=== PATIENT | female | born 1990 | race Caucasian/White ===

== ENCOUNTER 2016-11-12 09:37 | Emergency (ER) | payer OTHER ==
--- NOTE | 2016-11-12 09:47 | EDM.PDOC ---
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 It has not worsened but has continued. Patient denies any fevers, chills or pain with urination. Her bleeding is mild to moderate, she denies passing any clots or tissue. Review of systems: As per history of present illness and below otherwise all systems reviewed and negative. Past medical history: As per history of present illness and as reviewed below otherwise noncontributory. Surgical history: As per history of present illness and as reviewed below otherwise noncontributory. Social history: No reported history of drug or alcohol abuse. Family history: As per history of present illness and as reviewed below otherwise noncontributory. Physical exam: General: Well developed, well nourished in NAD HEENT: Atraumatic, normocephalic, pupils reactive, negative for conjunctival pallor or scleral icterus, mucous membranes moist, throat clear, neck supple, nontender, trachea midline. Lungs: Clear to auscultation, breath sounds equal bilaterally, chest nontender. Heart: S1S2, regular, negative for clicks, rubs, or JVD. Abdomen: Soft, nondistended, nontender. Negative for masses or hepatosplenomegaly. Negative for costovertebral tenderness. Pelvis: Stable nontender. Genitourinary: Deferred. Rectal: Deferred. Extremities: Atraumatic, negative for cords or calf pain. Neurovascular unremarkable. Neuro: Awake, alert, oriented. Cranial nerves II through XII unremarkable. Cerebellum unremarkable. Motor and sensory unremarkable throughout. Exam nonfocal. Diagnostics: [] Labs, urine and ultrasound done ultrasound shows just occasional sac 4 weeks and 6 days labs are normal urine appears contaminated. Therapeutics: [] Impression: [] Threatened Plan: [] Followup women's health clinic Definitive disposition and diagnosis as appropriate pending reevaluation and review of above. - Related Data Allergies/ADRs: Allergies Allergy/AdvReac Type Severity Reaction Status Date / Time No Known Allergies Allergy Verified 10/26/16 19:45 Home Meds: Home Meds . 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 Musculoskeletal History: Reports: Fracture, Other (see below) Other Musculoskeletal History: hx surgery for fx rt arm Neurological History: Reports: None Psychiatric History: Reports: None Endocrine/Metabolic History: Reports: None Hematologic History: Reports: None Immunologic History: Reports: None Oncologic (Cancer) History: Reports: None Dermatologic History: Reports: None - Infectious Disease History Infectious Disease History: Reports: Chicken pox - Past Surgical History Head Surgeries/Procedures: Reports: None Female Surgical History: Reports: None Social & Family History - Tobacco Use Smoking Status *Q: Never Smoker - Caffeine Use Caffeine Use: Reports: None - Alcohol Use Days Per Week of Alcohol Use: 0 - Recreational Drug Use Recreational Drug Use: No ED ROS GENERAL - Review of Systems Review Of Systems: See Below (See history of present illness) ED EXAM - Physical Exam Exam: See Below (See history of present illness) Course - Vital Signs Last Recorded V/S: Last Vital Signs Temp 37.4 C 11/12/16 11:06 Pulse 82 11/12/16 11:06 Resp 17 11/12/16 11:06 BP 105/62 11/12/16 11:06 Pulse Ox 100 11/12/16 11:06 - Orders/Labs/Meds Orders: Active Orders 24 hr Category Date Time Status Sodium Chloride 0.9% [Normal Saline] 1,000 ml Med 11/12/16 10:00 Active IV .BOLUS Sodium Chloride 0.9% [Saline Flush] Med 11/12/16 09:48 Active 10 ml FLUSH ASDIRECTED PRN Sodium Chloride 0.9% [Saline Flush] Med 11/12/16 09:48 Active 2.5 ml FLUSH ASDIRECTED PRN Peripheral IV Insertion Adult [OM.PC] Stat Oth 11/12/16 09:47 Ordered Medication Orders Sodium Chloride (Normal Saline) 1,000 mls @ 999 mls/hr IV .BOLUS LILIAN Last Admin: 11/12/16 10:06 Dose: 999 mls/hr Sodium Chloride (Saline Flush) 10 ml FLUSH ASDIRECTED PRN PRN Reason: Keep Vein Open Last Admin: 11/12/16 10:06 Dose: 10 ml Sodium Chloride (Saline Flush) 2.5 ml FLUSH ASDIRECTED PRN PRN Reason: Keep Vein Open Last Admin: 11/12/16 10:07 Dose: 2.5 ml Labs: Laboratory Tests 11/12/16 11/12/16 11/12/16 Range/Units 10:01 10:01 10:01 WBC 5.34 (4.0-11.0) K/uL RBC 4.42 (4.30-5.90) M/uL Hgb 13.1 (12.0-16.0) g/dL Hct 39.3 (36.0-46.0) % MCV 88.9 (80.0-98.0) fL MCH 29.6 (27.0-32.0) pg MCHC 33.3 (31.0-37.0) g/dL RDW Std Deviation 41.8 (28.0-62.0) fl RDW Coeff of Amanda 13 (11.0-15.0) % Plt Count 359 (150-400) K/uL MPV 8.90 (7.40-12.00) fL Neut % (Auto) 61.1 (48.0-80.0) % Lymph % (Auto) 27.3 (16.0-40.0) % [place] % (Auto) 9.4 (0.0-15.0) % Eos % (Auto) 1.3 (0.0-7.0) % Baso % (Auto) 0.9 (0.0-1.5) % Neut # 3.3 (1.4-5.7) K/uL Lymph # 1.5 (0.6-2.4) K/uL [place] # 0.5 (0.0-0.8) K/uL Eos # 0.1 (0.0-0.7) K/uL Baso # 0.1 (0.0-0.1) K/uL Nucleated RBC % 0.0 /100WBC Nucleated RBCs # 0 K/uL HCG, Quant 4611.1 mIU/mL Urine Color Urine Appearance Urine pH (5.0-8.0) Ur Specific Marion (1.001-1.035) Urine Protein (NEGATIVE) mg/dL Urine Glucose (UA) (NEGATIVE) mg/dL Urine Ketones (NEGATIVE) mg/dL Urine Occult Blood (NEGATIVE) Urine Nitrite (NEGATIVE) Urine Bilirubin (NEGATIVE) Urine Urobilinogen (<2.0) EU/dL Ur Leukocyte Esterase (NEGATIVE) Urine RBC (0-2/HPF) Urine WBC (0-5/HPF) Ur Epithelial Cells (NONE-FEW) Urine Bacteria (NEGATIVE) Blood Type O POSITIVE Antibody Screen NEGATIVE 11/12/16 Range/Units 10:05 WBC (4.0-11.0) K/uL RBC (4.30-5.90) M/uL Hgb (12.0-16.0) g/dL Hct (36.0-46.0) % MCV (80.0-98.0) fL MCH (27.0-32.0) pg MCHC (31.0-37.0) g/dL RDW Std Deviation (28.0-62.0) fl RDW Coeff of Amanda (11.0-15.0) % Plt Count (150-400) K/uL MPV (7.40-12.00) fL Neut % (Auto) (48.0-80.0) % Lymph % (Auto) (16.0-40.0) % [place] % (Auto) (0.0-15.0) % Eos % (Auto) (0.0-7.0) % Baso % (Auto) (0.0-1.5) % Neut # (1.4-5.7) K/uL Lymph # (0.6-2.4) K/uL [place] # (0.0-0.8) K/uL Eos # (0.0-0.7) K/uL Baso # (0.0-0.1) K/uL Nucleated RBC % /100WBC Nucleated RBCs # K/uL HCG, Quant mIU/mL Urine Color YELLOW Urine Appearance HAZY Urine pH 5.5 (5.0-8.0) Ur Specific [place] >= 1.030 (1.001-1.035) Urine Protein NEGATIVE (NEGATIVE) mg/dL Urine Glucose (UA) NEGATIVE (NEGATIVE) mg/dL Urine Ketones NEGATIVE (NEGATIVE) mg/dL Urine Occult Blood MODERATE (NEGATIVE) Urine Nitrite NEGATIVE (NEGATIVE) Urine Bilirubin NEGATIVE (NEGATIVE) Urine Urobilinogen 0.2 (<2.0) EU/dL Ur Leukocyte Esterase SMALL (NEGATIVE) Urine RBC 2-4 (0-2/HPF) Urine WBC 4-6 (0-5/HPF) Ur Epithelial Cells MODERATE (NONE-FEW) Urine Bacteria FEW (NEGATIVE) Blood Type Antibody Screen Meds: Medications Generic Name Dose Route Start Last Admin Trade Name Freq PRN Reason Stop Dose Admin Sodium Chloride 1,000 mls @ 999 mls/hr 11/12/16 10:00 11/12/16 10:06 Normal Saline IV 999 mls/hr .BOLUS LILIAN Administration Sodium Chloride 10 ml 11/12/16 09:48 11/12/16 10:06 Saline Flush FLUSH 10 ml ASDIRECTED PRN Administration Keep Vein Open Sodium Chloride 2.5 ml 11/12/16 09:48 11/12/16 10:07 Saline Flush FLUSH 2.5 ml ASDIRECTED PRN Administration Keep Vein Open Departure - Departure Time of Disposition: 12:45 Disposition: Home, Self-Care 01 Condition: good Clinical Impression: Threatened Forms: ED Department Discharge Additional Instructions: The following information is given to patients seen in the emergency department who are being discharged to home. This information is to outline your options for follow-up care. We provide all patients seen in our emergency department with a follow-up referral. The need for follow-up, as well as the timing and circumstances, are variable depending upon the specifics of your emergency department visit. If you don't have a primary care physician on staff, we will provide you with a referral. We always advise you to contact your personal physician following an emergency department visit to inform them of the circumstance of the visit and for follow-up with them and/or the need for any referrals to a consulting specialist. The emergency department will also refer you to a specialist when appropriate. This referral assures that you have the opportunity for follow-up care with a specialist. All of these measure are taken in an effort to provide you with optimal care, which includes your follow-up. Under all circumstances we always encourage you to contact your private physician who remains a resource for coordinating your care. When calling for follow-up care, please make the office aware that this follow-up is from your recent emergency room visit. If for any reason you are refused follow-up, please contact the [facility] Emergency Department at and asked to speak to the emergency department charge nurse. [facility] Primary Care - Women's Health [address] [place] [id number] - My Orders Last 24 Hours: My Active Orders 11/12/16 09:47 Peripheral IV Insertion Adult [OM.PC] Stat 11/12/16 09:48 Sodium Chloride 0.9% [Saline Flush] 10 ml FLUSH ASDIRECTED PRN Sodium Chloride 0.9% [Saline Flush] 2.5 ml FLUSH ASDIRECTED PRN 11/12/16 10:00 Sodium Chloride 0.9% [Normal Saline] 1,000 ml IV .BOLUS - Assessment/Plan Last 24 Hours: My Active Orders 11/12/16 09:47 Peripheral IV Insertion Adult [OM.PC] Stat 11/12/16 09:48 Sodium Chloride 0.9% [Saline Flush] 10 ml FLUSH ASDIRECTED PRN Sodium Chloride 0.9% [Saline Flush] 2.5 ml FLUSH ASDIRECTED PRN 11/12/16 10:00 Sodium Chloride 0.9% [Normal Saline] 1,000 ml IV .BOLUS
[2016-11-12] MEDS ORDERED: Sodium Chloride 0.9% 2.5 ML Syringe FLUSH PRN (09:48)
[2016-11-12] MEDS ORDERED: Sodium Chloride 0.9% 10 ML Syringe FLUSH PRN (09:48)
[2016-11-12] MEDS ORDERED: Sodium Chloride 0.9% 1,000 ML IV SCH (10:00)
--- NOTE | 2016-11-12 12:33 | US ---
EXAMINATION: Transvaginal obstetric ultrasound HISTORY: Bleeding COMPARISON: None TECHNIQUE: Grayscale, color Doppler, and spectral Doppler images obtained transvaginally. FINDINGS: The uterus is normal in size, contour, and echogenicity. There is a tiny 0.4 cm cyst withi n the endometrial stripe likely a very early gestational sac. No pole or yolk sac is yet ident ified. The gestational age by mean sac diameter is 4 weeks and 6 days with an estimated date of deli very at 07/16/2017. Both ovaries appear normal in size, contour and echogenicity demonstrating normal color and spectral Doppler flow. There is a trace likely physiologic free fluid. IMPRESSION: 1. Likely very early intrauterine gestational sac measuring 4 weeks and 6 days.
[2016-11-12 13:01] VITALS: BP 115/60
== END 2016-11-12 12:53 | disposition home or self-care (01) ==
LOC: MW.ED 09:37
DX: O20.0 Threatened abortion (principal); Z3A.01 Less than 8 weeks gestation of pregnancy; Z87.442 Personal history of urinary calculi
CPT/HCPCS: 36415; 76817; 81001; 84702; 85025; 86850; 86900; 86901; 96360; 99284; J7040; 99283

== ENCOUNTER → 2016-11-14 | Outpatient (CLI) | payer OTHER | LOC: MW.CHOBGYN 13:23 | PROVIDERS: ATTEND Obstetrics & Gynecology | DX: O20.0 Threatened abortion (principal) | CPT/HCPCS: 36415; 84702 ==

== ENCOUNTER → 2016-11-19 | Outpatient (CLI) | payer OTHER | LOC: MW.CHOBGYN 15:44 | PROVIDERS: ATTEND Advanced Practice Midwife | DX: O20.0 Threatened abortion (principal) | CPT/HCPCS: 36415; 84702 ==

== ENCOUNTER 2016-11-21 03:42 | Emergency (ER) | payer OTHER ==
--- NOTE | 2016-11-21 03:48 | EDM.PDOC ---
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 She presents tonight because she passed a piece of tissue which she brings to the ED and is worried that she has had a miscarriage. She is not bleeding heavily and is again only spotting and has minimal pelvic cramping. She's had no fever chills nausea vomiting or diarrhea and no urinary complaints. When she was seen in our ED on November 12 she had a pelvic ultrasound which identified a very early intrauterine gestational sac measuring 4 weeks and 6 days without pole or yolk sac.. She has since followed up in the clinic. Patient denies any sexual intercourse since being seen in the ER. Patient has only used a light pad both before and after passing this tissue. Since her ER visit the patient has been seen in the clinic and has had 2 quantitative hCGs performed since her ER visit showing an upward trend. Her hCG on her ER visit November 09 was 4611, on November 14 it was 5717, on November 19 it was 7615. Please also note when she was in the ER November 12 she had a hemoglobin of 13.1 and a blood type of O+ Review of systems: As per history of present illness and below otherwise all systems reviewed and negative. Past medical history: As per history of present illness and as reviewed below otherwise noncontributory. Surgical history: As per history of present illness and as reviewed below otherwise noncontributory. Social history: No reported history of drug or alcohol abuse. Family history: As per history of present illness and as reviewed below otherwise noncontributory. Physical exam: General: Well-developed well-nourished female who is nontoxic and has stable vitals. Patient brings a zip lock bag with a small old piece of tissue that looks sac like in nature without gross blood or clots HEENT: Atraumatic, normocephalic, negative for conjunctival pallor or scleral icterus, mucous membranes moist, throat clear, neck supple, nontender, trachea midline. Lungs: Clear to auscultation, breath sounds equal bilaterally, chest nontender. Heart: S1S2, regular rate and rhythm no overt murmurs Abdomen: Soft, nondistended, nontender. No overt tenderness on deep palpation and no rebound or guarding Negative for masses or hepatosplenomegaly. NABS Pelvis: Stable nontender. Genitourinary: External genitalia within normal limits and there is a small amount of blood seen in the vault. At the os which is fingertip there is a small amount of tissue which was gently teased out and a small oval shaped piece of tissue was obtained. After this there was no bleeding or tissue seen at the os and once this tissue was removed it was closed. Uterus is small bulky , approximately 6 weeks size and no adnexal tenderness or masses appreciated Rectal: Deferred. Extremities: Atraumatic, negative for cords or calf pain. Neurovascular unremarkable. Neuro: Awake, alert, oriented. Cranial nerves II through XII unremarkable. Cerebellum unremarkable. Motor and sensory unremarkable throughout. Exam nonfocal. Diagnostics: Serum quantitative hCG , pelvic ultrasound The tissue that the patient passed at home was sent to pathology as well as the tissue that was retrieved from her os Therapeutics: cytotec 800 mcg per vagina Quant hCG today 5331 which is a drop from the last one done a day and a half ago 0612: Case was discussed with ; she is covering for Dr. Norris and Lyn Beal the nurse automation lead. She would like the patient to receive Cytotec 800 mcg per vagina and have follow up with Lyn tomorrow in the clinic. Advise patient of this care plan as she is an inevitable AB and she is comfortable with this I cautioned her on reasons to return to the ED and the need to call the clinic this morning for an appointment to be seen tomorrow. said that she would contact Lyn and inform her of this patient as well. Impression: Incomplete AB stable Definitive disposition and diagnosis as appropriate pending reevaluation and review of above. 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 Other OB/BYN History: vaginal bleeding and abdominal pain/ 1 Musculoskeletal History: Reports: Fracture, Other (see below) Other Musculoskeletal History: hx surgery for fx rt arm Neurological History: Reports: None Psychiatric History: Reports: None Endocrine/Metabolic History: Reports: None Hematologic History: Reports: None Immunologic History: Reports: None Oncologic (Cancer) History: Reports: None Dermatologic History: Reports: None - Infectious Disease History Infectious Disease History: Reports: Chicken pox - Past Surgical History Head Surgeries/Procedures: Reports: None Female Surgical History: Reports: None Social & Family History - Family History Family Medical History: Noncontributory - Tobacco Use Smoking Status *Q: Never Smoker Second Hand Smoke Exposure: No - Caffeine Use Caffeine Use: Reports: None - Alcohol Use Days Per Week of Alcohol Use: 0 - Recreational Drug Use Recreational Drug Use: No ED ROS GENERAL - Review of Systems Review Of Systems: ROS reveals no pertinent complaints other than HPI. ED EXAM, GENERAL - Physical Exam Exam: See Below (see dictation) Course - Vital Signs Last Recorded V/S: Last Vital Signs Temp 36.7 C 11/21/16 03:48 Pulse 103 H 11/21/16 03:48 Resp 16 11/21/16 03:48 BP 100/73 11/21/16 03:48 Pulse Ox 99 11/21/16 03:48 - Orders/Labs/Meds Orders: Active Orders 24 hr Category Date Time Status Communication Order [RC] STAT Care 11/21/16 03:55 Active OB 1st Tri Sgl 1st Gest [US] Stat Exams 11/21/16 04:06 Stop Req OB Transvaginal [US] Stat Exams 11/21/16 04:07 Taken Misoprostol [Cytotec] Med 11/21/16 06:15 Once 800 mcg VAG ONETIME ONE Labs: Laboratory Tests 11/21/16 Range/Units 04:00 HCG, Quant 5331.0 mIU/mL Departure - Departure Time of Disposition: 06:22 Disposition: Home, Self-Care 01 Condition: good Clinical Impression: Incomplete Forms: ED Department Discharge Additional Instructions: The following information is given to patients seen in the emergency department who are being discharged to home. This information is to outline your options for follow-up care. We provide all patients seen in our emergency department with a follow-up referral. The need for follow-up, as well as the timing and circumstances, are variable depending upon the specifics of your emergency department visit. If you don't have a primary care physician on staff, we will provide you with a referral. We always advise you to contact your personal physician following an emergency department visit to inform them of the circumstance of the visit and for follow-up with them and/or the need for any referrals to a consulting specialist. The emergency department will also refer you to a specialist when appropriate. This referral assures that you have the opportunity for followup care with a specialist. All of these measure are taken in an effort to provide you with optimal care, which includes your followup. Under all circumstances we always encourage you to contact your private physician who remains a resource for coordinating your care. When calling for followup care, please make the office aware that this follow-up is from your recent emergency room visit. If for any reason you are refused follow-up, please contact the [facility] emergency department at and ask to speak to the emergency department charge nurse. [facility] Primary care-Women's Health [address] [id number] Please call the clinic later today to be seen by Lyn tomorrow in the clinic. Strict pelvic rest as we discussed, rest and push hydration. Use any [id number] meds he would like for cramping and return to ER as needed and as discussed. He would pass blood and some tissue at the day progresses after receiving the medication he got this morning. - My Orders Last 24 Hours: My Active Orders 11/21/16 03:55 Communication Order [RC] STAT 11/21/16 04:06 OB 1st Tri Sgl 1st Gest [US] Stat 11/21/16 04:07 OB Transvaginal [US] Stat 11/21/16 06:15 Misoprostol [Cytotec] 800 mcg VAG ONETIME ONE - Assessment/Plan Last 24 Hours: My Active Orders 11/21/16 03:55 Communication Order [RC] STAT 11/21/16 04:06 OB 1st Tri Sgl 1st Gest [US] Stat 11/21/16 04:07 OB Transvaginal [US] Stat 11/21/16 06:15 Misoprostol [Cytotec] 800 mcg VAG ONETIME ONE
[2016-11-21] MEDS: Misoprostol 200 MCG Tab ONE (06:29)
[2016-11-21] MEDS: Misoprostol 50 MCG (1/2 of 100 MCG) Tab VAG ONE (06:30)
[2016-11-21 06:44] VITALS: BP 105/55
--- NOTE | 2016-11-21 18:59 | US ---
EXAM DATE: 11/21/16 PATIENT'S AGE: 26 Patient: VINCENT LONG Facility: [place], [place] Site . Site : 1990 Study: US OB Pelvis [id number] 5:36:28 AM Ordering Physician: Jaja Peña Final Report: INDICATION: Bleeding. Retained products. TECHNIQUE: Ultrasound OB pelvis transabdominal and transvaginal. Real-time pollock-scale imaging of the pelvis was performed. COMPARISON: 11/12/2016 FINDINGS: There is an ovoid saclike structure within the endocervical canal, measuring up to 1.3 centimeters, without a pole or yolk sac seen. The previously seen saclike structure within the uterine endometrium is not identified. The endometrium is heterogeneous. The right ovary measures 2.4 x 1.8 x 2.1 centimeters the and the left ovary measures 2.4 x 1.5 x 1.8 centimeters. Doppler flow is documented in both ovaries. No significant free fluid is seen. IMPRESSION: A sac-like structure within the endocervical canal, without a pole or yolk sac, with nonvisualization of the previously seen uterine endometrial saclike structure, suggestive of a spontaneous in progress. Recommend correlation with beta HCG levels and a short-term followup study, as clinically indicated. Dictated by Tal Priest MD @ 11/21/2016 6:05:30 AM Dictated by: Tal Priest MD @ 11/21/2016 06:05:39 ----- ADDENDUM ----- These findings were communicated to Dr. Wilkinson on 11/21/2016 at 6:10 a.m. Dictated by Tal Priest MD @ Nov 21 2016 6:09AM (Electronic Signature) Report Signed by Proxy and Original Signed Document filed in the Medical Record. [facility]
== END 2016-11-21 06:42 | disposition home or self-care (01) ==
LOC: MW.ED 03:42
DX: O03.4 Incomplete spontaneous abortion without complication (principal); Z3A.01 Less than 8 weeks gestation of pregnancy
CPT/HCPCS: 36415; 76817; 84702; 99284; A9270; 88305; 99283

== ENCOUNTER → 2016-12-02 | Outpatient (CLI) | payer OTHER | END | disposition home or self-care (01) | LOC: MW.CHFP 13:31 | PROVIDERS: ATTEND Nurse Practitioner Family | DX: R53.83 Other fatigue (principal) | CPT/HCPCS: 36415; 84443; 85027 ==

== ENCOUNTER 2017-10-24 07:07 | Inpatient (IN) | payer BC ==
[2017-10-24] MEDS ORDERED: Sodium Chloride 0.9% 2.5 ML Syringe FLUSH PRN (10:48)
[2017-10-24] MEDS ORDERED: Nalbuphine 10 MG/1 ML Vial IVPUSH PRN (10:48)
[2017-10-24] MEDS ORDERED: Sodium Chloride 0.9% 10 ML Syringe FLUSH PRN (10:48)
[2017-10-24] MEDS ORDERED: Carboprost Tromethamine 250 MCG/1 ML Amp IM PRN (10:48)
[2017-10-24] MEDS ORDERED: Misoprostol 200 MCG Tab PO PRN (10:48)
[2017-10-24] MEDS ORDERED: Water For Irrigation,Sterile 1,000 ML Container IRR PRN (10:48)
[2017-10-24] MEDS ORDERED: Tranexamic Acid 1,000 MG in Sodium Chloride 0.9% 100 ML IV PRN (10:48)
[2017-10-24] MEDS ORDERED: Methylergonovine 0.2 MG/1 ML Amp IM PRN (10:48)
[2017-10-24] MEDS ORDERED: Lidocaine 1% 50 ML MDV INJECT PRN (10:48)
[2017-10-24] MEDS ORDERED: Oxytocin/0.9 % Sodium Chloride 30 UNIT/500 ML BAG IV SCH (11:00)
--- NOTE | 2017-10-24 12:21 | PCM.LDHP ---
L&D History of Present Illness - General Date of Service: 10/24/17 Admit Problem/Dx: Patient Status Order with Admit Dx/Problem 10/24/17 07:47 Patient Status [ADT] Routine 10/24/17 10:18 Patient Status [ADT] Routine Admission Diagnosis/Problem Admission Diagnosis/Problem - planned 10/24/17 12:17 26yo EDC 11/09/2017 37 5/7 wks. Comes due to labor, O+, RI, GBS neg Source of Information: Patient History Limitations: Reports: No Limitations - History of Present Illness Timing/Duration: Reports: minutes: Location, : Reports: Abdomen Improves with: Reports: None Worsens with: Reports: None Associated Symptoms: Reports: N - Related Data Allergies/Adverse Reactions: Allergies Allergy/AdvReac Type Severity Reaction Status Date / Time No Known Allergies Allergy Verified 11/21/16 03:47 Home Medications: Home Meds Xoz625/FA/Omega3/Dha/Fish Oil [ Gummies] 1 tab PO DAILY 11/21/16 [ History] Past Medical History HEENT History: Reports: Sinusitis Cardiovascular History: Reports: None Respiratory History: Reports: None Gastrointestinal History: Reports: None Genitourinary History: Reports: Renal Calculus Other Genitourinary History: hx kidney stone 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 Other OB/BYN History: vaginal bleeding and abdominal pain/ 1 Musculoskeletal History: Reports: Fracture, Other (See Below) Other Musculoskeletal History: hx surgery for fx rt arm Neurological History: Reports: None Psychiatric History: Reports: None Endocrine/Metabolic History: Reports: None Hematologic History: Reports: None Immunologic History: Reports: None Oncologic (Cancer) History: Reports: None Dermatologic History: Reports: None - Infectious Disease History Infectious Disease History: Reports: Chicken Pox - Past Surgical History Head Surgeries/Procedures: Reports: None HEENT Surgical History: Reports: Other (See Below) Neurological Surgical History: Reports: Other (See Below) Musculoskeletal Surgical History: Reports: Ganglion Cyst Social & Family History - Family History Family Medical History: Noncontributory - Tobacco Use Smoking Status *Q: Never Smoker Second Hand Smoke Exposure: No - Caffeine Use Caffeine Use: Reports: None - Alcohol Use Days Per Week of Alcohol Use: 0 - Recreational Drug Use Recreational Drug Use: No H&P Review of Systems - Review of Systems: Review Of Systems: See Below General: Reports: No Symptoms HEENT: Reports: No Symptoms Pulmonary: Reports: No Symptoms Cardiovascular: Reports: No Symptoms Gastrointestinal: Reports: No Symptoms Genitourinary: Reports: No Symptoms Musculoskeletal: Reports: No Symptoms Skin: Reports: No Symptoms Psychiatric: Reports: No Symptoms Neurological: Reports: No Symptoms Hematologic/Lymphatic: Reports: No Symptoms Immunologic: Reports: No Symptoms L&D Exam - Exam Exam: See Below - Vital Signs Weight: 68.039 kg - Sahu Score Sahu Score Cervix Position: Midposition Sahu Score Consistency: Soft Sahu Score Effacement: >80% Sahu Score Dilation: > 5 cm Sahu Score Infant's Station: -1 ,0 Sahu Score Total: 11 - Exam General: Alert, Oriented, Cooperative Lungs: Clear to Auscultation, Normal Respiratory Effort Cardiovascular: Regular Rate, Regular Rhythm, Normal S1, Normal S2 GI/Abdominal Exam: Soft, Non-Tender, No Organomegaly (gravid), No Distention, No Abnormal Bruit, No Mass, Pelvis Stable Rectal Exam: Deferred Genitourinary: Normal external exam, Normal bimanual exam, Cervical dilitation Back Exam: Full Range of Motion Extremities: Normal Inspection, Normal Range of Motion, Non-Tender, No Pedal Edema, Normal Capillary Refill Skin: Warm, Dry, Intact Neurological: Reflexes Equal Bilateral, Normal Gait, Normal Speech, Normal Tone Psychiatric: Alert, Normal Affect, Normal Mood - Patient Data Lab Results Last 24 hrs: Laboratory Results - last 24 hr 10/24/17 Range/Units 11:09 WBC 10.09 (4.0-11.0) K/uL RBC 3.81 L (4.30-5.90) M/uL Hgb 10.9 L (12.0-16.0) g/dL Hct 33.0 L (36.0-46.0) % MCV 86.6 (80.0-98.0) fL MCH 28.6 (27.0-32.0) pg MCHC 33.0 (31.0-37.0) g/dL RDW Std Deviation 45.6 (28.0-62.0) fl RDW Coeff of Amanda 15 (11.0-15.0) % Plt Count 314 (150-400) K/uL MPV 10.60 (7.40-12.00) fL Nucleated RBC % 0.0 /100WBC Nucleated RBCs # 0 K/uL Result Diagrams: 10/24/17 11:09 - Problem List (1) Supervision of normal IUP (intrauterine ) in primigravida SNOMED Code(s): 71354965, 923188819, 804557710 ICD Code: Z34.00 - ENCNTR FOR SUPRVSN OF NORMAL FIRST , UNSP TRIMESTER Status: Acute Priority: High Current Visit: Yes Qualifiers: Trimester: third trimester Qualified Code(s): Z34.03 - Encounter for supervision of normal first , third trimester Problem List Initiated/Reviewed/Updated: Yes Orders Last 24hrs: Active Orders 24 hr Category Date Time Status Patient Status [ADT] Routine ADT 10/24/17 10:18 Active Heart Tones [RC] CONTINUOUS Care 10/24/17 10:48 Active Non Stress Test [RC] PER UNIT ROUTINE Care 10/24/17 07:47 Active Non Stress Test [RC] PER UNIT ROUTINE Care 10/24/17 10:48 Active May Shower [RC] ASDIRECTED Care 10/24/17 10:48 Active Notify Provider [RC] PRN Care 10/24/17 10:48 Active Up ad Elma [RC] ASDIRECTED Care 10/24/17 07:47 Active Up ad Elma [RC] ASDIRECTED Care 10/24/17 10:48 Active Vaginal Exam [RC] Click to Edit Care 10/24/17 07:47 Active Vaginal Exam [RC] PRN Care 10/24/17 10:48 Active Vital Signs [RC] PER UNIT ROUTINE Care 10/24/17 07:47 Active Vital Signs [RC] PER UNIT ROUTINE Care 10/24/17 10:48 Active Regular Diet [DIET] Diet 10/24/17 Lunch Active TYPE AND SCREEN [BBK] Routine Lab 10/24/17 11:09 Received Carboprost Tromethamine [Hemabate DS] Med 10/24/17 10:48 Active 250 mcg IM ASDIRECTED PRN Lactated Ringers [Ringers, Lactated] 1,000 ml Med 10/24/17 11:00 Active IV ASDIRECTED Lidocaine 1% [Xylocaine 1%] Med 10/24/17 10:48 Active 50 ml INJECT .ONCE PRN Methylergonovine [Methergine] Med 10/24/17 10:48 Active 0.2 mg IM ASDIRECTED PRN Misoprostol [Cytotec] Med 10/24/17 10:48 Active 200 mcg PO .ONCE PRN Nalbuphine [Nubain] Med 10/24/17 10:48 Active 10 mg IVPUSH ASDIRECTED PRN Oxytocin/0.9 % Sodium Chloride [Oxytocin 30 Unit/500 ML Med 10/24/17 11:00 Active -NS] 30 unit in 500 ml IV TITRATE Sodium Chloride 0.9% [Saline Flush] Med 10/24/17 10:48 Active 10 ml FLUSH ASDIRECTED PRN Sodium Chloride 0.9% [Saline Flush] Med 10/24/17 10:48 Active 2.5 ml FLUSH ASDIRECTED PRN Tranexamic Acid [Cyklokapron] 1,000 mg Med 10/24/17 10:48 Active Sodium Chloride 0.9% [Normal Saline] 100 ml IV ONETIME Water For Irrigation,Sterile [Sterile Water for Med 10/24/17 10:48 Active Irrigation] 1,000 ml IRR ASDIRECTED PRN Scalp Electrode [WOMSER] Per Unit Routine Oth 10/24/17 10:48 Ordered Peripheral IV Insertion Adult [OM.PC] Routine Oth 10/24/17 10:48 Ordered Resuscitation Status Routine Resus Stat 10/24/17 07:47 Ordered Medication Orders Carboprost Tromethamine (Hemabate Ds) 250 mcg IM ASDIRECTED PRN PRN Reason: Post Hemorrhage Tranexamic Acid 1,000 mg/ (Sodium Chloride) 110 mls @ 600 mls/hr IV ONETIME PRN PRN Reason: Bleeding Lactated Ringer's (Ringers, Lactated) 1,000 mls @ 150 mls/hr IV ASDIRECTED LILIAN Oxytocin/Sodium Chloride (Oxytocin 30 Unit/500 Ml-Ns) 30 unit in 500 mls @ 999 mls/hr IV TITRATE LILIAN Lidocaine HCl (Xylocaine 1%) 50 ml INJECT .ONCE PRN PRN Reason: Laceration repair Methylergonovine Maleate (Methergine) 0.2 mg IM ASDIRECTED PRN PRN Reason: Post Hemorrhage Misoprostol (Cytotec) 200 mcg PO .ONCE PRN PRN Reason: Post Hemorrhage Nalbuphine HCl (Nubain) 10 mg IVPUSH ASDIRECTED PRN PRN Reason: Pain (severe 7-10) Sodium Chloride (Saline Flush) 10 ml FLUSH ASDIRECTED PRN PRN Reason: Keep Vein Open Sodium Chloride (Saline Flush) 2.5 ml FLUSH ASDIRECTED PRN PRN Reason: Keep Vein Open Sterile Water (Sterile Water For Irrigation) 1,000 ml IRR ASDIRECTED PRN PRN Reason: delivery Assessment/Plan Comment:: Labor A: 26yo EDC 11/09/2017 37 5/7 wks. Comes due to labor, O+, RI, GBS neg P: admit to L&D, epidural prn, anticipate . Dr Norris updated
[2017-10-24] MEDS: Lactated Ringers 1,000 ML IV SCH ×2 (19:10→19:55)
[2017-10-24] MEDS ORDERED: fentaNYL 100 MCG/2 ML SDV ONE (19:30)
--- NOTE | 2017-10-24 20:17 | PCM.PREANE ---
Preanesthetic Assessment - Anesthesia/Transfusion/Family Hx Anesthesia History: Prior Anesthesia Without Reaction Family History of Anesthesia Reaction: No Transfusion History: No Prior Transfusion(s) - Review of Systems General: No Symptoms Pulmonary: No Symptoms Cardiovascular: No Symptoms Gastrointestinal: No Symptoms Neurological: No Symptoms Other: Reports: None - Physical Assessment NPO Status Date: 10/24/17 NPO Status Time: 20:12 (cl liquids) Height: 1.63 m Weight: 68.039 kg ASA Class: 2 Mental Status: Alert & Oriented x3 Airway Class: Mallampati = 2 (narrow palate) Dentition: Reports: Normal Dentition Thyro-Mental Finger Breadths: 3 Mouth Opening Finger Breadths: 3 ROM/Head Extension: Full Lungs: Clear to Auscultation, Normal Respiratory Effort Cardiovascular: Regular Rate, Regular Rhythm - Lab Values: Laboratory Last Values WBC 10.09 K/uL (4.0-11.0) 10/24/17 11:09 RBC 3.81 M/uL (4.30-5.90) L 10/24/17 11:09 Hgb 10.9 g/dL (12.0-16.0) L 10/24/17 11:09 Hct 33.0 % (36.0-46.0) L 10/24/17 11:09 MCV 86.6 fL (80.0-98.0) 10/24/17 11:09 MCH 28.6 pg (27.0-32.0) 10/24/17 11:09 MCHC 33.0 g/dL (31.0-37.0) 10/24/17 11:09 RDW Std Deviation 45.6 fl (28.0-62.0) 10/24/17 11:09 RDW Coeff of Amanda 15 % (11.0-15.0) 10/24/17 11:09 Plt Count 314 K/uL (150-400) 10/24/17 11:09 MPV 10.60 fL (7.40-12.00) 10/24/17 11:09 Nucleated RBC % 0.0 /100WBC 10/24/17 11:09 Nucleated RBCs # 0 K/uL 10/24/17 11:09 Blood Type O POSITIVE 10/24/17 11:09 Antibody Screen NEGATIVE 10/24/17 11:09 - Allergies Allergies/Adverse Reactions: Allergies Allergy/AdvReac Type Severity Reaction Status Date / Time No Known Allergies Allergy Verified 11/21/16 03:47 - Blood Blood Available: Yes Product(s) Available: PRBC - Acknowledgements Anesthesia Type Planned: Epidural Pt an Appropriate Candidate for the Planned Anesthesia: Yes Alternatives and Risks of Anesthesia Discussed w Pt/Guardian: Yes Pt/Guardian Understands and Agrees with Anesthesia Plan: Yes PreAnesthesia Questionnaire HEENT History: Reports: Sinusitis Cardiovascular History: Reports: None Respiratory History: Reports: None Gastrointestinal History: Reports: None Genitourinary History: Reports: Renal Calculus Other Genitourinary History: hx kidney stone 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 Other OB/BYN History: vaginal bleeding and abdominal pain/ 1 Musculoskeletal History: Reports: Fracture, Other (See Below) Other Musculoskeletal History: hx surgery for fx rt arm Neurological History: Reports: None Psychiatric History: Reports: None Endocrine/Metabolic History: Reports: None Hematologic History: Reports: None Immunologic History: Reports: None Oncologic (Cancer) History: Reports: None Dermatologic History: Reports: None - Infectious Disease History Infectious Disease History: Reports: Chicken Pox - Past Surgical History Head Surgeries/Procedures: Reports: None HEENT Surgical History: Reports: Other (See Below) Neurological Surgical History: Reports: Other (See Below) Musculoskeletal Surgical History: Reports: Ganglion Cyst - SUBSTANCE USE Smoking Status *Q: Never Smoker Second Hand Smoke Exposure: No Days Per Week of Alcohol Use: 0 Recreational Drug Use History: No - HOME MEDS Home Medications: Home Meds Yrz872/FA/Omega3/Dha/Fish Oil [ Gummies] 1 tab PO DAILY 11/21/16 [ History] - CURRENT (IN HOUSE) MEDS Current Meds: Current Medications Carboprost Tromethamine (Hemabate Ds) 250 mcg IM ASDIRECTED PRN PRN Reason: Post Hemorrhage Tranexamic Acid 1,000 mg/ (Sodium Chloride) 110 mls @ 600 mls/hr IV ONETIME PRN PRN Reason: Bleeding Lactated Ringer's (Ringers, Lactated) 1,000 mls @ 150 mls/hr IV ASDIRECTED LILIAN Last Admin: 10/24/17 19:10 Dose: 999 mls/hr Oxytocin/Sodium Chloride (Oxytocin 30 Unit/500 Ml-Ns) 30 unit in 500 mls @ 999 mls/hr IV TITRATE LILIAN Lidocaine HCl (Xylocaine 1%) 50 ml INJECT .ONCE PRN PRN Reason: Laceration repair Methylergonovine Maleate (Methergine) 0.2 mg IM ASDIRECTED PRN PRN Reason: Post Hemorrhage Misoprostol (Cytotec) 200 mcg PO .ONCE PRN PRN Reason: Post Hemorrhage Nalbuphine HCl (Nubain) 10 mg IVPUSH ASDIRECTED PRN PRN Reason: Pain (severe 7-10) Sodium Chloride (Saline Flush) 10 ml FLUSH ASDIRECTED PRN PRN Reason: Keep Vein Open Sodium Chloride (Saline Flush) 2.5 ml FLUSH ASDIRECTED PRN PRN Reason: Keep Vein Open Sterile Water (Sterile Water For Irrigation) 1,000 ml IRR ASDIRECTED PRN PRN Reason: delivery Discontinued Medications Fentanyl (Sublimaze) Confirm Administered Dose 100 mcg .ROUTE .STK-Transcriptic ONE Stop: 10/24/17 19:31 Fentanyl/Bupivacaine HCl (Zthuwmzo-Fdctp-Bl 2 Mcg/Ml-0.125%) Confirm Administered Dose 100 mls @ as directed EP .STHoot.Me-MED ONE Stop: 10/24/17 19:31 - Pre-Procedure Checklist Attending Provider Aware: Yes Chart Reviewed: Yes Consent Signed: Yes Labs Reviewed: Yes VS/FHR Reviewed: Yes Patient Identification Confirmation Method: Reports: ID Band Visual, Verbal Patient Pt an Appropriate Candidate for the Planned Anesthesia: Yes Alternatives and Risks of Anesthesia Discussed w Pt/Guardian: Yes - Procedure Procedure Start Date: 10/24/17 Procedure Start Time: 19:[address]: Reports: Blood Pressure, Heart Rate, SPO2 Functional IV: Yes Safety Measures: Reports: Patient Identified, Procedure Verified, Site Verified , Procedure Time Out Patient Position: Reports: Sitting Prep: Reports: Betadine x3, Sterile Drape Local Anesthetic: Reports: Intradermal Wheal w Lidocaine 1% Regional Placement Level: Reports: L4-5 Needle: Reports: 17 g Touhy Approach: Reports: Midline Technique: Reports: ABRAN Glass Syringe (3 ml sterile water) ABRAN Needle Depth (cm): 4 cm Parasthesia: Reports: None Fluid Obtained: Reports: None Catheter Depth at Skin (cm): 20 cm (@1941) Test Dose Time: 19:43 Test Dose Medication: Reports: Lidocaine 1.5% w Epinephrine 1:200,000 Test Dose Response: Reports: Negative Loading Dose Time: 19:49 ([id number]) Loading Dose Medication: 100 mcg fentanyl, 5 ml 0.125%bupivacaine with 2mcg/ml fentanyl Loading Dose Patient Position: semi fowlers with JOHN Continuous Infusion Start Time: 19:54 Continuous Infusion Medication: 100 ml 0.125% bupivacaine with 2 mcg/ml fentanyl Continuous Infusion Rate: 8 ml/hr Continuous Infusion PCS Bolus Option: 5 ml every 15 minutes Patient Position Post Placement: Reports: Semi-fowlers/JOHN Post-procedure Pain Level: 0/10 VS and FHR Monitored in Unit Post Placement: Yes Procedure End Date: 10/24/17 Procedure End Time: 20:22 (VSS, FHR WNL, pt pain free)
--- NOTE | 2017-10-25 01:13 | PCM.DEL ---
L & D Note - General Info Date of Service: 10/25/17 Mother's Due Date: 11/09/17 - Delivery Note Labor: Spontaneous Delivery Outcome: Livebirth Infant Delivery Method: Spontaneous Vaginal Delivery-Single Presentation: Vertex Nuchal Cord: None Anesthesia Type: Epidural Anesthetic: Lidocaine (Xylocaine) 1% Plain Local Anesthetic Volume: 3cc Amniotic Fluid Description: Clear Episiotomy Type: Midline Laceration: 3rd Degree Suture type: Vicryl Suture size: 3-0 Placenta: Intact, Spontaneous Cord: 3 Vessels Estimated Blood Loss: 200 Resuscitation Needed: No Score 1 min: 8 Score 5 min: 9 Second Stage Interventions: Reports: Pushing Effectively, Pushing, Pulls Own Legs Back Delivery Comments (Free Text/Narrative):: over MLE, head delivered with good pushing, shoulders and body followed easily. Infant to mothers abdomen with spont cry. RN at for eval of baby. Delayed cord clamping. Pitocin to IVF. Cord clamped and cut. Placenta delivered grossly intact. Inspection noted 3rd degree extension of MLE. Dr Norris call to hospital for repair. 1% lido added to epidural to ensure comfort. EBL 200cc. APGARS 8/9, WT: 6lb 11oz. Mother and baby bonding well and stable. - General Info Date of Service: 10/25/17 Admission Dx/Problem (Free Text): Patient Status Order with Admit Dx/Problem 10/24/17 07:47 Patient Status [ADT] Routine 10/24/17 10:18 Patient Status [ADT] Routine Admission Diagnosis/Problem Admission Diagnosis/Problem - planned 10/24/17 12:17 26yo EDC 11/09/2017 37 5/7 wks. Comes due to labor, O+, RI, GBS neg Functional Status: Reports: Pain Controlled, Tolerating Diet - Review of Systems General: Reports: No Symptoms HEENT: Reports: No Symptoms Pulmonary: Reports: No Symptoms Cardiovascular: Reports: No Symptoms Gastrointestinal: Reports: No Symptoms Genitourinary: Reports: No Symptoms Musculoskeletal: Reports: No Symptoms Skin: Reports: No Symptoms Neurological: Reports: No Symptoms Psychiatric: Reports: No Symptoms - Patient Data Weight - Most Recent: 68.039 kg Lab Results Last 24 Hours: Laboratory Results - last 24 hr 10/24/17 10/24/17 Range/Units 11:09 11:09 WBC 10.09 (4.0-11.0) K/uL RBC 3.81 L (4.30-5.90) M/uL Hgb 10.9 L (12.0-16.0) g/dL Hct 33.0 L (36.0-46.0) % MCV 86.6 (80.0-98.0) fL MCH 28.6 (27.0-32.0) pg MCHC 33.0 (31.0-37.0) g/dL RDW Std Deviation 45.6 (28.0-62.0) fl RDW Coeff of Amanda 15 (11.0-15.0) % Plt Count 314 (150-400) K/uL MPV 10.60 (7.40-12.00) fL Nucleated RBC % 0.0 /100WBC Nucleated RBCs # 0 K/uL Blood Type O POSITIVE Antibody Screen NEGATIVE Med Orders - Current: Current Medications Carboprost Tromethamine (Hemabate Ds) 250 mcg IM ASDIRECTED PRN PRN Reason: Post Hemorrhage Tranexamic Acid 1,000 mg/ (Sodium Chloride) 110 mls @ 600 mls/hr IV ONETIME PRN PRN Reason: Bleeding Lactated Ringer's (Ringers, Lactated) 1,000 mls @ 150 mls/hr IV ASDIRECTED [facility] Last Admin: 10/24/17 19:55 Dose: 150 mls/hr Oxytocin/Sodium Chloride (Oxytocin 30 Unit/500 Ml-Ns) 30 unit in 500 mls @ 999 mls/hr IV TITRATE [facility] Last Admin: 10/25/17 00:29 Dose: 999 mls/hr Lidocaine HCl (Xylocaine 1%) 50 ml INJECT .ONCE PRN PRN Reason: Laceration repair Last Admin: 10/25/17 00:47 Dose: 50 ml Methylergonovine Maleate (Methergine) 0.2 mg IM ASDIRECTED PRN PRN Reason: Post Hemorrhage Misoprostol (Cytotec) 200 mcg PO .ONCE PRN PRN Reason: Post Hemorrhage Nalbuphine HCl (Nubain) 10 mg IVPUSH ASDIRECTED PRN PRN Reason: Pain (severe 7-10) Sodium Chloride (Saline Flush) 10 ml FLUSH ASDIRECTED PRN PRN Reason: Keep Vein Open Sodium Chloride (Saline Flush) 2.5 ml FLUSH ASDIRECTED PRN PRN Reason: Keep Vein Open Sterile Water (Sterile Water For Irrigation) 1,000 ml IRR ASDIRECTED PRN PRN Reason: delivery Discontinued Medications Fentanyl (Sublimaze) Confirm Administered Dose 100 mcg .ROUTE .STK-MED ONE Stop: 10/24/17 19:31 Fentanyl/Bupivacaine HCl (Hwclqyxf-Zldfx-Ou 2 Mcg/Ml-0.125%) Confirm Administered Dose 100 mls @ as directed EP .STK-MED ONE Stop: 10/24/17 19:31 - Exam General: Alert, Oriented, Cooperative, No Acute Distress Lungs: Normal Respiratory Effort GI/Abdominal Exam: Normal Bowel Sounds, Soft, Non-Tender, No Distention, Pelvis Stable (Female) Exam: Normal External Exam, Normal Bimanual Exam, Vaginal Bleeding, Vaginal Lesions Back Exam: Full Range of Motion Extremities: Normal Range of Motion, Non-Tender, No Pedal Edema, Normal Capillary Refill Wound/Incisions: Healing Well Neurological: No New Focal Deficit, Normal Speech, Normal Tone Psy/Mental Status: Alert, Normal Affect, Normal Mood - Problem List & Annotations (1) Supervision of normal IUP (intrauterine ) in primigravida SNOMED Code(s): 94531082, 803165271, 289799392 Code(s): Z34.00 - ENCNTR FOR SUPRVSN OF NORMAL FIRST , UNSP TRIMESTER Status: Acute Priority: High Current Visit: Yes Qualifiers: Trimester: third trimester Qualified Code(s): Z34.03 - Encounter for supervision of normal first , third trimester (2) (normal spontaneous vaginal delivery) SNOMED Code(s): 50029527 Code(s): O80 - ENCOUNTER FOR FULL-TERM UNCOMPLICATED DELIVERY Status: Acute Priority: High Current Visit: Yes - Problem List Review Problem List Initiated/Reviewed/Updated: Yes - Plan Plan:: Labor A: 26yo EDC 11/09/2017 37 5/7 wks. Comes due to labor, O+, RI, GBS neg P: admit to L&D, epidural prn, anticipate . Dr Norris updated Delivery A: viable female, APGARS 8/9, WT: 6lb 11oz, EBL 200cc, 3rd degree extension from MLE. Mother and baby left in stable condition for recovery P: Routine pp plan of care
[2017-10-25] MEDS ORDERED: Bisacodyl 10 MG Supp RECTAL PRN (01:19)
[2017-10-25] MEDS ORDERED: Ibuprofen 400 MG Tab PO PRN (01:19)
[2017-10-25] MEDS ORDERED: Acetaminophen 500 MG Tab PO PRN ×2 (01:19)
[2017-10-25] MEDS: Benzocaine/Menthol 20%-0.5% Spray 78 GM Cannister TOP PRN (01:39)
[2017-10-25] MEDS: Witch Hazel Medicated Pads 40/Jar TOP PRN (01:39)
[2017-10-25] MEDS: Lanolin 100% Cream 7 GM Tube TOP PRN (01:40)
[2017-10-25] MEDS: oxyCODONE 5 MG Tab PO PRN ×5 (02:54→19:19)
[2017-10-25] MEDS: Ibuprofen 800 MG Tab PO PRN ×4 (02:54→22:52)
[2017-10-25] MEDS: Docusate Sodium 100 MG Cap PO SCH ×2 (08:01→20:58)
--- NOTE | 2017-10-25 15:19 | PCM48HPAN ---
Post Anesthesia Note - EVALUATION WITHIN 48HRS OF ANESTHETIC Vital Signs in Normal Range: Yes Patient Participated in Evaluation: Yes Respiratory Function Stable: Yes Airway Patent: Yes Cardiovascular Function Stable: Yes Hydration Status Stable: Yes Pain Control Satisfactory: Yes Nausea and Vomiting Control Satisfactory: Yes Mental Status Recovered: Yes Resp Rate: 16 - COMMENTS/OBSERVATIONS Free Text/Narrative:: Pt has full return of motor movement and sensory function. States has not been ambulating much r/t pain from labial tear. Denies problems related to epidural.
[2017-10-26] MEDS: oxyCODONE 5 MG Tab PO PRN ×3 (03:59→10:53)
[2017-10-26] MEDS: Ibuprofen 800 MG Tab PO PRN ×2 (05:09→10:54)
[2017-10-26 07:22] VITALS: BP 129/89
[2017-10-26] MEDS: Docusate Sodium 100 MG Cap PO SCH (07:59)
--- NOTE | 2017-10-26 08:50 | PCM.DCSUM1 ---
Discharge Summary - Hospital Course Free Text/Narrative:: Discharge home with . Follow up 2 weeks and then 6 weeks for post exams. Come sooner if needed. - Discharge Data Discharge Date: 10/26/17 Discharge Disposition: Home, Self-Care 01 Condition: Good - Discharge Diagnosis/Problem(s) (1) Supervision of normal IUP (intrauterine ) in primigravida SNOMED Code(s): 78535837, 181576535, 225155295 ICD Code: Z34.00 - ENCNTR FOR SUPRVSN OF NORMAL FIRST , UNSP TRIMESTER Status: Acute Priority: High Current Visit: Yes Qualifiers: Trimester: third trimester Qualified Code(s): Z34.03 - Encounter for supervision of normal first , third trimester (2) (normal spontaneous vaginal delivery) SNOMED Code(s): 29275267 ICD Code: O80 - ENCOUNTER FOR FULL-TERM UNCOMPLICATED DELIVERY Status: Acute Priority: High Current Visit: Yes - Patient Instructions Diet: Usual Diet as Tolerated Activity: As Tolerated, No Strenuous Activities, Rest and Relax Today Driving: May Drive Today Showering/Bathing: May Shower Notify Provider of: Fever, Increased Pain, Swelling and Redness, Nausea and/or Vomiting Other/Special Instructions: Discharge home with . Follow up 2 weeks and then 6 weeks for post exams. Come sooner if needed. - Discharge Plan Home Medications: Home Meds Slp153/FA/Omega3/Dha/Fish Oil [ Gummies] 1 tab PO DAILY 11/21/16 [ History] - General Info Date of Service: 10/26/17 Admission Dx/Problem (Free Text: Patient Status Order with Admit Dx/Problem 10/24/17 07:47 Patient Status [ADT] Routine 10/24/17 10:18 Patient Status [ADT] Routine Admission Diagnosis/Problem Admission Diagnosis/Problem - planned 10/24/17 12:17 26yo EDC 11/09/2017 37 5/7 wks. Comes due to labor, O+, RI, GBS neg Functional Status: Reports: Pain Controlled, Tolerating Diet, Ambulating, Urinating - Review of Systems General: Reports: No Symptoms HEENT: Reports: No Symptoms Pulmonary: Reports: No Symptoms Cardiovascular: Reports: No Symptoms Gastrointestinal: Reports: No Symptoms Genitourinary: Reports: No Symptoms Musculoskeletal: Reports: No Symptoms Skin: Reports: No Symptoms Neurological: Reports: No Symptoms Psychiatric: Reports: No Symptoms - Patient Data Vitals - Most Recent: Last Vital Signs Temp 36.8 C 10/26/17 07:27 Pulse 87 10/26/17 07:27 Resp 16 10/26/17 07:27 BP 129/89 10/26/17 07:27 Pulse Ox 98 10/26/17 07:27 Weight - Most Recent: 68.039 kg Med Orders - Current: Current Medications Acetaminophen (Tylenol Extra Strength) 500 mg PO Q4H PRN PRN Reason: Pain Acetaminophen (Tylenol Extra Strength) 1,000 mg PO Q4H PRN PRN Reason: Pain Benzocaine/Menthol (Dermoplast Pain Relief 20%-0.5% [place]) 78 gm TOP ASDIRECTED PRN PRN Reason: Perineal Comfort Measure Last Admin: 10/25/17 01:39 Dose: 1 can Bisacodyl (Dulcolax) 10 mg RECTAL .ONCE PRN PRN Reason: Constipation Docusate Sodium (Colace) 100 mg PO BID LILIAN Last Admin: 10/26/17 07:59 Dose: 100 mg Emollient Ointment (Lansinoh Hpa) 0 gm TOP ASDIRECTED PRN PRN Reason: Sore Nipples Last Admin: 10/25/17 01:40 Dose: 1 tube Ibuprofen (Motrin) 400 mg PO Q4H PRN PRN Reason: Pain Ibuprofen (Motrin) 800 mg PO Q6H PRN PRN Reason: Pain Last Admin: 10/26/17 05:09 Dose: 800 mg Oxycodone HCl (Oxycodone) 5 mg PO Q2H PRN PRN Reason: Pain Last Admin: 10/26/17 07:59 Dose: 5 mg Witch Anay (Tucks) 1 pad TOP ASDIRECTED PRN PRN Reason: comfort care Last Admin: 10/25/17 01:39 Dose: 1 tub Discontinued Medications Carboprost Tromethamine (Hemabate Ds) 250 mcg IM ASDIRECTED PRN PRN Reason: Post Hemorrhage Fentanyl (Sublimaze) Confirm Administered Dose 100 mcg .ROUTE .STK-MED ONE Stop: 10/24/17 19:31 Last Admin: 10/25/17 03:07 Dose: Not Given Tranexamic Acid 1,000 mg/ (Sodium Chloride) 110 mls @ 600 mls/hr IV ONETIME PRN PRN Reason: Bleeding Lactated Ringer's (Ringers, Lactated) 1,000 mls @ 150 mls/hr IV ASDIRECTED [facility] Last Admin: 10/24/17 19:55 Dose: 150 mls/hr Oxytocin/Sodium Chloride (Oxytocin 30 Unit/500 Ml-Ns) 30 unit in 500 mls @ 999 mls/hr IV TITRATE [facility] Last Admin: 10/25/17 00:29 Dose: 999 mls/hr Fentanyl/Bupivacaine HCl (Roevbjlc-Ikbdh-Ac 2 Mcg/Ml-0.125%) Confirm Administered Dose 100 mls @ as directed EP .STK-MED ONE Stop: 10/24/17 19:31 Last Admin: 10/25/17 03:07 Dose: Not Given Lidocaine HCl (Xylocaine 1%) 50 ml INJECT .ONCE PRN PRN Reason: Laceration repair Last Admin: 10/25/17 00:47 Dose: 50 ml Methylergonovine Maleate (Methergine) 0.2 mg IM ASDIRECTED PRN PRN Reason: Post Hemorrhage Misoprostol (Cytotec) 200 mcg PO .ONCE PRN PRN Reason: Post Hemorrhage Nalbuphine HCl (Nubain) 10 mg IVPUSH ASDIRECTED PRN PRN Reason: Pain (severe 7-10) Sodium Chloride (Saline Flush) 10 ml FLUSH ASDIRECTED PRN PRN Reason: Keep Vein Open Sodium Chloride (Saline Flush) 2.5 ml FLUSH ASDIRECTED PRN PRN Reason: Keep Vein Open Sterile Water (Sterile Water For Irrigation) 1,000 ml IRR ASDIRECTED PRN PRN Reason: delivery - Exam General: Reports: Alert, Oriented, Cooperative, No Acute Distress Lungs: Reports: Normal Respiratory Effort GI/Abdominal Exam: Soft, Non-Tender, No Distention (Female) Exam: Vaginal Bleeding Rectal (Female) Exam: Deferred Back Exam: Reports: Full Range of Motion Extremities: Normal Range of Motion, Non-Tender, No Pedal Edema, Normal Capillary Refill Skin: Reports: Warm, Dry, Intact Wound/Incisions: Reports: Healing Well Neurological: Reports: No New Focal Deficit, Normal Speech, Normal Tone Psy/Mental Status: Reports: Alert, Normal Affect, Normal Mood *Q Meaningful Use (DIS) - VTE *Q VTE Criteria *Q: - Stroke *Q Stroke Criteria *Q: - AMI *Q AMI Criteria *Q:
[2017-10-26] MEDS ORDERED: Measles, Mumps & Rubella Vaccine 0.5 ML SDV SUBCUT ONE (10:43)
[2017-10-26] MEDS: Witch Hazel Medicated Pads 40/Jar TOP PRN (10:57)
[2017-10-26] MEDS: Lanolin 100% Cream 7 GM Tube TOP PRN (10:57)
[2017-10-26] MEDS: Benzocaine/Menthol 20%-0.5% Spray 78 GM Cannister TOP PRN (11:00)
== END 2017-10-26 11:40 | disposition home or self-care (01) | DRG 542 ==
LOC: MW.OBCHECK 07:07 → MW.OB 07:19 → MW.OBCHECK 10:18 → MW.OB 12:08 → OBSVTOIN 10-25 00:28 → MW.OB 10-25 04:15
PROVIDERS: ADMIT Obstetrics & Gynecology; ATTEND Advanced Practice Midwife
PROC: 10E0XZZ Delivery of Products of Conception, External Approach (ICD-10-PCS; principal; 2017-10-25)
PROC: 0DQR0ZZ Repair Anal Sphincter, Open Approach (ICD-10-PCS; 2017-10-25)
DX: O70.20 Third degree perineal laceration during delivery, unspecified (principal); Z3A.37 37 weeks gestation of pregnancy; Z37.0 Single live birth
CPT/HCPCS: 36415; 51702; 59025; 59409; 85027; 86850; 86900; 86901; 90707; A9270-GY; G0010; J2590; J7120

== ENCOUNTER 2018-04-17 07:08 | Day surgery (SDC) | payer BC, OTHER, SELFPAY ==
[2018-04-17] MEDS ORDERED: Bupivacaine 0.25%/EPINEPHrine 1:200,000 10 ML SDV ONE (07:33)
[2018-04-17] MEDS ORDERED: Lidocaine 2% 5 ML SDV ONE (07:34)
[2018-04-17] MEDS ORDERED: Midazolam 1 MG/ML 2 ML SDV ONE (07:35)
[2018-04-17] MEDS ORDERED: Propofol 200 MG/20 ML SDV ONE (07:35)
[2018-04-17] MEDS ORDERED: fentaNYL 100 MCG/2 ML SDV ONE (07:35)
[2018-04-17] MEDS ORDERED: Bupivacaine 0.25%/EPINEPHrine 1:200,000 10 ML SDV INJECT ONE (08:00)
[2018-04-17] MEDS ORDERED: Acetaminophen/HYDROcodone 325-5 MG Tab PO PRN (08:00)
[2018-04-17] MEDS ORDERED: ceFAZolin 2 GM in Premix Bag 1 BAG IV ONE (08:00)
[2018-04-17] MEDS ORDERED: Lactated Ringers 1,000 ML IV SCH (08:00)
--- NOTE | 2018-04-17 08:00 | PCM.PREANE ---
Preanesthetic Assessment - Anesthesia/Transfusion/Family Hx Anesthesia History: Prior Anesthesia Without Reaction Family History of Anesthesia Reaction: No Transfusion History: No Prior Transfusion(s) - Review of Systems General: No Symptoms Pulmonary: No Symptoms Cardiovascular: No Symptoms Gastrointestinal: No Symptoms Neurological: No Symptoms Other: Reports: None - Physical Assessment NPO Status Date: 04/16/18 O2 Sat by Pulse Oximetry: 95 Respiratory Rate: 14 Vital Signs: Last Vital Signs Temp 36.5 C 04/17/18 07:55 Pulse 80 04/17/18 07:55 Resp 14 04/17/18 07:55 BP 99/56 L 04/17/18 07:55 Pulse Ox 95 04/17/18 07:55 Height: 1.63 m Weight: 54.885 kg ASA Class: 1 Mental Status: Alert & Oriented x3 Airway Class: Mallampati = 1 Dentition: Reports: Normal Dentition ROM/Head Extension: Full Lungs: Clear to Auscultation, Normal Respiratory Effort Cardiovascular: Regular Rate, Regular Rhythm - Lab Values: Laboratory Last Values Urine HCG, Qual NEGATIVE (NEGATIVE) 04/17/18 07:30 - Allergies Allergies/Adverse Reactions: Allergies Allergy/AdvReac Type Severity Reaction Status Date / Time No Known Allergies Allergy Verified 04/14/18 08:12 - Blood Blood Available: No - Anesthesia Plan Pre-Op Medication Ordered: None - Acknowledgements Anesthesia Type Planned: MAC Pt an Appropriate Candidate for the Planned Anesthesia: Yes Alternatives and Risks of Anesthesia Discussed w Pt/Guardian: Yes Pt/Guardian Understands and Agrees with Anesthesia Plan: Yes PreAnesthesia Questionnaire HEENT History: Reports: Sinusitis Cardiovascular History: Reports: None Respiratory History: Reports: None Gastrointestinal History: Reports: None Genitourinary History: Reports: Renal Calculus Other Genitourinary History: hx kidney stone 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 OB/BYN History: vaginal bleeding and abdominal pain/ 1 Musculoskeletal History: Reports: Fracture Other Musculoskeletal History: hx surgery for fx rt arm Neurological History: Reports: None Psychiatric History: Reports: None Endocrine/Metabolic History: Reports: None Hematologic History: Reports: None Immunologic History: Reports: None Oncologic (Cancer) History: Reports: None Dermatologic History: Reports: None - Infectious Disease History Infectious Disease History: Reports: Chicken Pox - Past Surgical History Head Surgeries/Procedures: Reports: None Musculoskeletal Surgical History: Reports: Other (See Below) Other Musculoskeletal Surgeries/Procedures:: surgical tx for fx rt arm, ganglion cyst removed from left 3rd finger - SUBSTANCE USE Smoking Status *Q: Never Smoker Recreational Drug Use History: No - HOME MEDS Home Medications: Home Meds Anw734/FA/Omega3/Dha/Fish Oil [ Gummies] 1 tab PO DAILY 11/21/16 [ History] Fenugreek Seed Extract [Fenugreek] 1 tab PO DAILY 04/14/18 [History] - CURRENT (IN HOUSE) MEDS Current Meds: Current Medications Hydrocodone Bitart/Acetaminophen ([place] 325-5 Mg) 1 tab PO Q4H PRN PRN Reason: Pain Bupivacaine HCl/Epinephrine Bitart (Marcaine 0.25%/Epinephrine 1:200,000) 10 ml INJECT ONETIME ONE Stop: 04/17/18 08:01 Cefazolin Sodium/Dextrose 2 gm (/ Premix) 50 mls @ 100 mls/hr IV ONETIME ONE Stop: 04/17/18 08:29 Lactated Ringer's (Ringers, Lactated) 1,000 mls @ 125 mls/hr IV ASDIRECTED LILIAN Discontinued Medications Bupivacaine HCl/Epinephrine Bitart (Marcaine 0.25%/Epinephrine 1:200,000) Confirm Administered Dose 20 ml .ROUTE .STK-MED ONE Stop: 04/17/18 07:34 Fentanyl (Sublimaze) Confirm Administered Dose 100 mcg .ROUTE .STK-MED ONE Stop: 04/17/18 07:36 Lidocaine (Xylocaine-Mpf 2%) Confirm Administered Dose 5 ml .ROUTE .STK-MED ONE Stop: 04/17/18 07:35 Midazolam HCl (Versed 1 Mg/Ml) Confirm Administered Dose 2 mg .ROUTE .STK-MED ONE Stop: 04/17/18 07:36 Propofol (Diprivan 20 Ml) Confirm Administered Dose 200 mg .ROUTE .STK-MED ONE Stop: 04/17/18 07:36
[2018-04-17] MEDS ORDERED: ceFAZolin 1 GM Vial ONE (08:21)
[2018-04-17] MEDS ORDERED: Sodium Chloride 0.9% 20 ML ONE (08:21)
[2018-04-17] MEDS ORDERED: Ketorolac 30 MG/ML SDV ONE (08:55)
[2018-04-17] MEDS ORDERED: Ondansetron 4 MG/2 ML SDV ONE (08:55)
--- NOTE | 2018-04-17 09:21 | PCM48HPAN ---
Post Anesthesia Note - EVALUATION WITHIN 48HRS OF ANESTHETIC Vital Signs in Normal Range: Yes Patient Participated in Evaluation: Yes Respiratory Function Stable: Yes Airway Patent: Yes Cardiovascular Function Stable: Yes Hydration Status Stable: Yes Pain Control Satisfactory: Yes Nausea and Vomiting Control Satisfactory: Yes Mental Status Recovered: Yes Resp Rate: 14 - COMMENTS/OBSERVATIONS Free Text/Narrative:: direct to phase 2,
[2018-04-17 10:42] VITALS: BP 106/56
--- NOTE | 2018-04-17 15:38 | PCM.OPNOTE ---
- General Post-Op/Procedure Note Date of Surgery/Procedure: 04/17/18 Operative Procedure(s): excision of left middle finger ganglion and release of the a1 aravind to the left middle finger Pre Op Diagnosis: left middle finger ganglion and irritation at the a1 aravind Post-Op Diagnosis: Same Primary Surgeon: Dominga Rivear Cot Assembler: Mita Rizzo Complications: None Condition: Good Free Text/Narrative:: Intake & Output 04/16/18 04/17/18 04/17/18 23:59 07:59 15:59 Intake Total 400 Balance 400
--- NOTE | 2018-04-21 14:55 | OR ---
SURGEON: FRANCESCO AGUILAR MD DATE OF PROCEDURE: 04/17/2018 PREOPERATIVE DIAGNOSIS: Left middle finger ganglion and irritation of the A1 aravind. POSTOPERATIVE DIAGNOSIS: Left middle finger ganglion and irritation of the A1 aravind. PROCEDURE: Excision of left middle finger ganglion and release of the A1 aravind to the left middle finger. PHARMACOVIGILANCE SCIENTIST: PHOEBE Hall ANESTHESIA: Local MAC. INDICATIONS: Ms. Gorman is seen today in evaluation for a left middle finger ganglion. Risks and benefits of release were discussed with her and she was in agreement to proceed. Risks were including, but not limited to, bleeding, infection, damage to underlying or overlying structures, possible need for future interventions, possible scarring. PROCEDURE IN DETAIL: After informed consent was obtained and placed on the chart, the patient was brought to the operating theater and laid in supine position. After adequate local MAC anesthesia was obtained, the area was prepped and draped in the normal fashion. A time-out was completed to confirm side and site. Attention was paid after time-out, an insufflation of the tourniquet to dissection of the left middle finger ganglion. An incision was made directly over the A1 aravind in the ganglion site itself and dissection was carried circumferentially around the ganglion itself. Once adequately dissected, the ganglion was removed and copiously irrigated. Once adequately irrigated, the A1 aravind was then released as it was appreciated to be the site of irritation. Once adequately released, dissection was carried distally and proximally with the scissor to ensure complete release and the area was irrigated and closed. The incision was closed using a 5-0 nylon stitch in a horizontal mattress fashion. Once adequately closed, the wound was dressed with Xeroform fluffs and a Kerlix gauze dressing and a 2-inch Sukhdeep wrap. The patient tolerated this well. All counts and needles were correct at the end of the case. FOLLOWUP INSTRUCTIONS: The patient will see us in 10 to 14 days for suture removal, sooner if any problems, questions, or concerns. GISELLA / PAIGE /[id number]
== END 2018-04-17 09:40 | disposition home or self-care (01) ==
LOC: MW.SDS 07:08
PROVIDERS: ATTEND Plastic Surgery
DX: M67.442 Ganglion, left hand (principal)
CPT/HCPCS: 26160; 81025; J0690; J1885; J2250; J2405; J2704; J3010; J3490; J7120; 01810; 88304

== ENCOUNTER 2019-09-28 02:32 | Emergency (ER) | payer OTHER ==
--- NOTE | 2019-09-28 02:55 | EDM.PDOC ---
ED HPI GENERAL MEDICAL PROBLEM - General Chief Complaint: Fever Stated Complaint: COLD, RUNNING NOSE, FEVER AT 21WKS Time Seen by Provider: 09/28/19 02:34 Source of Information: Reports: Patient History Limitations: Reports: No Limitations - History of Present Illness INITIAL COMMENTS - FREE TEXT/NARRATIVE: HISTORY OF PRESENT ILLNESS: Patient is a 28 year old female who presents with cough, sore throat, myalgias and fever. She is currently 21 weeks . She has had cough and congestion since along with sore throat. Friday began having fevers and generalized myalgias. Has been taking Tylenol, last dose prior to arrival. She denies any abdominal pain, vomiting or diarrhea. No vaginal bleeding or discharge. No urinary symptoms. Denies any rash or neck stiffness. She is able to swallow. Denies any dyspnea or wheezing. No hemoptysis. No recent international travel. Did not receive the flu vaccine this year. REVIEW OF SYSTEMS: Other than the symptoms associated with the present events, the following is reported with regard to recent health: General: (+) fever. HENT: (+) congestion. Respiratory: (+) cough. Cardiovascular: (-) chest pain. GI: (-) abdominal pain. : (-) urinary complaints. Musculoskeletal: (+) generalized myalgias Endocrine: (-) DM Neurological: (-) localized weakness. Skin: (-) rash PAST MEDICAL HISTORY: reviewed as per nursing notes SOCIAL HISTORY: reviewed as per nursing notes, MEDICATIONS: Per nurse's note ALLERGIES: Per nurse's note, reviewed by me PHYSICAL EXAMINATION: GENERALIZED APPEARANCE: well developed, well nourished in mild distress VITAL SIGNS: Per nurse's note, reviewed by me SKIN: Warm, dry; (-) cyanosis; (-) rash. HEAD: (-) scalp swelling, (-) tenderness. EYES: (-) conjunctival pallor, (-) scleral icterus. ENMT: (-) stridor; mucous membranes moist. mild Pharyngeal erythema without exudate. uvula midline. No trismus. No phonation changes. Airway widely patent. NECK: (-) tenderness, (-) stiffness, no meningismus CHEST AND RESPIRATORY: (-) rales, (-) rhonchi, (-) wheezes; breath sounds equal bilaterally. HEART AND CARDIOVASCULAR: (-) irregularity; (-) murmur, (-) gallop. ABDOMEN AND GI: Soft; (-) tenderness, (-) guarding, (-) rebound, (-) palpable masses, uterus (-) CVAT EXTREMITIES: (-) deformity, (-) edema. NEURO AND PSYCH: Alert. Cranial nerves grossly intact; strength symmetric. gait steady DIAGNOSTICS: Influenza A + Strep - EMERGENCY DEPARTMENT COURSE AND TREATMENT: Patient's condition remained stable during Emergency Department evaluation. She is clinically well appearing, nontoxic, well hydrated. Breathing is unlabored with normal respiratory rate, pattern and pulse ox and clear lung velez. I do not feel CXR indicated. Influenza A positive. Will treat per current CDC recommendation with Tamiflu. Patient made aware of risks/benefits/side effects. To f/u with pcp in 1-2 days. Return immediately with any new or worsening symptoms. Expressed verbal understanding. PLAN AND FOLLOW-UP: Patient received written and verbal instructions regarding this condition. Return to ED immediately with any new or worsening symptoms. Follow up to be arranged by patient with pcp in 1-2 days for further evaluation. Given discharge precautions. Patient expressed verbal understanding. 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 - Related Data Allergies Allergy/AdvReac Type Severity Reaction Status Date / Time No Known Allergies Allergy Verified 09/28/19 02:44 Home Meds: Home Meds Pnv No.103/Folic/Om3s/Fish Oil [ Gummies] 1 tab PO DAILY 11/21/16 [ History] Oseltamivir [Tamiflu] 75 mg PO BID 5 Days #10 cap 09/28/19 [Rx] Past Medical History HEENT History: Reports: Sinusitis Cardiovascular History: Reports: None Respiratory History: Reports: None Gastrointestinal History: Reports: None Genitourinary History: Reports: Renal Calculus Other Genitourinary History: hx kidney stone 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 SEASONAL TAX PREPARER History: vaginal bleeding and abdominal pain/ 1 Musculoskeletal History: Reports: Fracture Other Musculoskeletal History: hx surgery for fx rt arm Neurological History: Reports: None Psychiatric History: Reports: None Endocrine/Metabolic History: Reports: None Hematologic History: Reports: None Immunologic History: Reports: None Oncologic (Cancer) History: Reports: None Dermatologic History: Reports: None - Infectious Disease History Infectious Disease History: Reports: Chicken Pox - Past Surgical History Head Surgeries/Procedures: Reports: None HEENT Surgical History: Reports: Other (See Below) Female Surgical History: Reports: None Neurological Surgical History: Reports: Other (See Below) Musculoskeletal Surgical History: Reports: Other (See Below) Other Musculoskeletal Surgeries/Procedures:: surgical tx for fx rt arm, ganglion cyst removed from left 3rd finger Social & Family History - Family History Family Medical History: Noncontributory - Caffeine Use Caffeine Use: Reports: None ED ROS GENERAL - Review of Systems Review Of Systems: See Below (see dictation) ED EXAM, GENERAL - Physical Exam Exam: See Below (see dictation) Course - Vital Signs Last Recorded V/S: Last Vital Signs Temp 98.1 F 09/28/19 04:30 Pulse 102 H 09/28/19 04:30 Resp 20 09/28/19 04:30 BP 102/62 09/28/19 04:30 Pulse Ox 97 09/28/19 04:30 - Orders/Labs/Meds Orders: Active Orders 24 hr Category Date Time Status Heart Rate [RC] Click to Edit Care 09/28/19 02:50 Active CULTURE STREP A CONFIRMATION [RM] Stat Lab 09/28/19 02:55 Results STREP SCRN A RAPID W CULT CONF [RM] Stat Lab 09/28/19 02:55 Results Departure - Departure Time of Disposition: 04:18 Disposition: Home, Self-Care 01 Condition: Good Clinical Impression: Influenza A - Discharge Information *PRESCRIPTION DRUG MONITORING PROGRAM REVIEWED*: Not Applicable *COPY OF PRESCRIPTION DRUG MONITORING REPORT IN PATIENT CHRISTOPHER: Not Applicable Prescriptions: Oseltamivir [Tamiflu] 75 mg PO BID 5 Days #10 cap Instructions: Influenza, Adult, [id number] Referrals: Horacio Bell [Ordering Only Provider] - 1 Day Forms: ED Department Discharge Additional Instructions: The following information is given to patients seen in the emergency department who are being discharged to home. This information is to outline your options for follow-up care. We provide all patients seen in our emergency department with a follow-up referral. The need for follow-up, as well as the timing and circumstances, are variable depending upon the specifics of your emergency department visit. If you don't have a primary care physician on staff, we will provide you with a referral. We always advise you to contact your personal physician following an emergency department visit to inform them of the circumstance of the visit and for follow-up with them and/or the need for any referrals to a consulting specialist. The emergency department will also refer you to a specialist when appropriate. This referral assures that you have the opportunity for follow-up care with a specialist. All of these measure are taken in an effort to provide you with optimal care, which includes your follow-up. Under all circumstances we always encourage you to contact your private physician who remains a resource for coordinating your care. When calling for follow-up care, please make the office aware that this follow-up is from your recent emergency room visit. If for any reason you are refused follow-up, please contact the [facility] Emergency Department at and asked to speak to the emergency department charge nurse. Sepsis Event Note - Evaluation Sepsis Screening Result: Possible Sepsis Risk - Focused Exam Vital Signs: Vital Signs Temp Pulse Resp BP Pulse Ox 09/28/19 04:30 98.1 F 102 H 20 102/62 97 09/28/19 02:45 100.2 F 126 H 18 115/70 96 Date Exam was Performed: 09/28/19 Time Exam was Performed: 04:47 - My Orders Last 24 Hours: My Active Orders 09/28/19 02:50 Heart Rate [RC] Click to Edit 09/28/19 02:55 CULTURE STREP A CONFIRMATION [RM] Stat STREP SCRN A RAPID W CULT CONF [RM] Stat - Assessment/Plan Last 24 Hours: My Active Orders 09/28/19 02:50 Heart Rate [RC] Click to Edit 09/28/19 02:55 CULTURE STREP A CONFIRMATION [RM] Stat STREP SCRN A RAPID W CULT CONF [RM] Stat
[2019-09-28 04:38] VITALS: BP 102/62; PULSE 102
== END 2019-09-28 04:44 | disposition home or self-care (01) ==
LOC: MW.ED 02:32
DX: O99.512 Diseases of the respiratory system complicating pregnancy, second trimester (principal); J10.1 Influenza due to other identified influenza virus with other respiratory manifestations; Z3A.21 21 weeks gestation of pregnancy
CPT/HCPCS: 87081; 87804; 87880-QW; 99283

== ENCOUNTER 2020-01-25 07:36 | Inpatient (IN) | payer OTHER ==
[2020-01-25] MEDS ORDERED: Lidocaine 1% 50 ML MDV INJECT PRN (08:04)
[2020-01-25] MEDS ORDERED: Tranexamic Acid 1,000 MG in Sodium Chloride 0.9% 100 ML IV PRN (08:04)
[2020-01-25] MEDS ORDERED: Misoprostol 200 MCG Tab PO PRN (08:04)
[2020-01-25] MEDS ORDERED: Sodium Chloride 0.9% 10 ML SDV IV PRN (08:04)
[2020-01-25] MEDS ORDERED: Sodium Chloride 0.9% 2.5 ML Syringe FLUSH PRN (08:04)
[2020-01-25] MEDS ORDERED: Nalbuphine 10 MG/1 ML Vial IVPUSH PRN (08:04)
[2020-01-25] MEDS ORDERED: Butorphanol 1 MG/ML SDV IVPUSH PRN (08:04)
[2020-01-25] MEDS ORDERED: Carboprost Tromethamine 250 MCG/1 ML Amp IM PRN (08:04)
[2020-01-25] MEDS ORDERED: Sodium Chloride 0.9% 10 ML Syringe FLUSH PRN (08:04)
[2020-01-25] MEDS ORDERED: Water For Irrigation,Sterile 1,000 ML Container IRR PRN (08:04)
[2020-01-25] MEDS ORDERED: Methylergonovine 0.2 MG/1 ML Amp IM PRN (08:04)
[2020-01-25] MEDS ORDERED: Ampicillin 2 GM in Sodium Chloride 0.9% 100 ML IV ONE (08:06)
[2020-01-25] MEDS ORDERED: Oxytocin/0.9 % Sodium Chloride 30 UNIT/500 ML BAG IV SCH (08:15)
[2020-01-25] MEDS: Lactated Ringers 1,000 ML IV SCH ×3 (08:32→13:39)
--- NOTE | 2020-01-25 08:48 | PCM.LDHP ---
L&D History of Present Illness - General Date of Service: 01/25/20 Admit Problem/Dx: Patient Status Order with Admit Dx/Problem 01/25/20 07:42 Patient Status [ADT] Routine Admission Diagnosis/Problem Admission Diagnosis/Problem 01/25/20 08:49 at 38 weeks (HUGO: 02/08/20) presenting reporting regular contractions every 5 minutes; SVE 5 cm/80%/-2, soft, midposition; O+, rubella immune, GBS positive Source of Information: Patient History Limitations: Reports: No Limitations - History of Present Illness Associated Symptoms: Reports: N - Related Data Allergies/Adverse Reactions: Allergies Allergy/AdvReac Type Severity Reaction Status Date / Time No Known Allergies Allergy Verified 09/28/19 02:44 Home Medications: Home Meds Pnv No.103/Folic/Om3s/Fish Oil [ Gummies] 1 tab PO DAILY 11/21/16 [ History] Oseltamivir [Tamiflu] 75 mg PO BID 5 Days #10 cap 09/28/19 [Rx] Past Medical History HEENT History: Reports: Sinusitis Cardiovascular History: Reports: None Respiratory History: Reports: None Gastrointestinal History: Reports: None Genitourinary History: Reports: Renal Calculus Other Genitourinary History: hx kidney stone FORESTRY AIDE History: Reports: Other OB/BYN History: vaginal bleeding and abdominal pain/ 1 Musculoskeletal History: Reports: Fracture Other Musculoskeletal History: hx surgery for fx rt arm Neurological History: Reports: None Psychiatric History: Reports: None Endocrine/Metabolic History: Reports: None Hematologic History: Reports: None Immunologic History: Reports: None Oncologic (Cancer) History: Reports: None Dermatologic History: Reports: None - Infectious Disease History Infectious Disease History: Reports: Chicken Pox - Past Surgical History Head Surgeries/Procedures: Reports: None HEENT Surgical History: Reports: Other (See Below) Female Surgical History: Reports: None Neurological Surgical History: Reports: Other (See Below) Musculoskeletal Surgical History: Reports: Other (See Below) Other Musculoskeletal Surgeries/Procedures:: surgical tx for fx rt arm, ganglion cyst removed from left 3rd finger Social & Family History - Family History Family Medical History: Noncontributory - Caffeine Use Caffeine Use: Reports: None H&P Review of Systems - Review of Systems: Review Of Systems: See Below General: Reports: No Symptoms HEENT: Reports: No Symptoms Pulmonary: Reports: No Symptoms Cardiovascular: Reports: No Symptoms Gastrointestinal: Reports: No Symptoms Genitourinary: Reports: No Symptoms Musculoskeletal: Reports: No Symptoms Skin: Reports: No Symptoms Psychiatric: Reports: No Symptoms Neurological: Reports: No Symptoms Hematologic/Lymphatic: Reports: No Symptoms Immunologic: Reports: No Symptoms L&D Exam - Exam Exam: See Below - OB Specific Movement: Active Heart Tones: Present Heart Rate (FHR) Variability: Moderate (6-25 bmp) - Sahu Score Sahu Score Cervix Position: Midposition Sahu Score Consistency: Soft Sahu Score Effacement: >80% Sahu Score Dilation: > 5 cm Sahu Score Infant's Station: -1 ,0 Sahu Score Total: 11 - Exam General: Alert, Oriented, Cooperative Lungs: Normal Respiratory Effort Cardiovascular: Regular Rate, Regular Rhythm GI/Abdominal Exam: Soft, Non-Tender Rectal Exam: Deferred Genitourinary: Deferred Back Exam: Normal Inspection, Full Range of Motion Extremities: Normal Inspection, Normal Range of Motion, Non-Tender, Normal Capillary Refill Skin: Warm, Dry, Intact Neurological: Strength Equal Bilateral, Normal Gait, Normal Speech, Normal Tone , Sensation Intact Psychiatric: Alert, Normal Affect, Normal Mood - Patient Data Lab Results Last 24 hrs: Laboratory Results - last 24 hr 01/25/20 Range/Units 08:20 WBC 11.08 H (4.0-11.0) K/uL RBC 4.05 L (4.30-5.90) M/uL Hgb 12.1 (12.0-16.0) g/dL Hct 36.9 (36.0-46.0) % MCV 91.1 (80.0-98.0) fL MCH 29.9 (27.0-32.0) pg MCHC 32.8 (31.0-37.0) g/dL RDW Std Deviation 43.0 (28.0-62.0) fl RDW Coeff of Amanda 13 (11.0-15.0) % Plt Count 291 (150-400) K/uL MPV 10.10 (7.40-12.00) fL Nucleated RBC % 0.0 /100WBC Nucleated RBCs # 0 K/uL Result Diagrams: 01/25/20 08:20 - Problem List (1) Supervision of normal IUP (intrauterine ) in multigravida SNOMED Code(s): 379218857, 978854261, 125865903 ICD Code: Z34.80 - ENCOUNTER FOR SUPRVSN OF NORMAL , UNSP TRIMESTER Status: Acute Priority: High Current Visit: Yes Qualifiers: Trimester: third trimester Qualified Code(s): Z34.83 - Encounter for supervision of other normal , third trimester Problem List Initiated/Reviewed/Updated: Yes Orders Last 24hrs: Active Orders 24 hr Category Date Time Status Patient Status [ADT] Routine ADT 01/25/20 07:42 Active Heart Tones [RC] CONTINUOUS Care 01/25/20 08:04 Active Non Stress Test [RC] PER UNIT ROUTINE Care 01/25/20 07:42 Active Notify Provider [RC] PRN Care 01/25/20 08:04 Active Up ad Elma [RC] ASDIRECTED Care 01/25/20 07:42 Active Vaginal Exam [RC] Click to Edit Care 01/25/20 07:42 Active Vital Signs [RC] PER UNIT ROUTINE Care 01/25/20 07:42 Active RPR (SYPHILIS SERO) W/ RFLX [REF] Routine Lab 01/25/20 08:20 Received TYPE AND SCREEN [BBK] Routine Lab 01/25/20 08:04 Ordered Butorphanol [Stadol] Med 01/25/20 08:04 Active 1 mg IVPUSH Q1H PRN Carboprost Tromethamine [Hemabate DS] Med 01/25/20 08:04 Active 250 mcg IM ASDIRECTED PRN Lactated Ringers [Ringers, Lactated] 1,000 ml Med 01/25/20 08:15 Active IV ASDIRECTED Lidocaine 1% [Xylocaine 1%] Med 01/25/20 08:04 Active 50 ml INJECT ONETIME PRN Methylergonovine [Methergine] Med 01/25/20 08:04 Active 0.2 mg IM ASDIRECTED PRN Nalbuphine [Nubain] Med 01/25/20 08:04 Active 10 mg IVPUSH Q1H PRN Oxytocin/0.9 % Sodium Chloride [Oxytocin 30 Unit/500 ML Med 01/25/20 08:15 Active -NS] 30 unit in 500 ml IV TITRATE Sodium Chloride 0.9% [Normal Saline] Med 01/25/20 08:04 Active 10 ml IV ASDIRECTED PRN Sodium Chloride 0.9% [Saline Flush] Med 01/25/20 08:04 Active 10 ml FLUSH ASDIRECTED PRN Sodium Chloride 0.9% [Saline Flush] Med 01/25/20 08:04 Active 2.5 ml FLUSH ASDIRECTED PRN Tranexamic Acid [Cyklokapron] 1,000 mg Med 01/25/20 08:04 Active Sodium Chloride 0.9% [Normal Saline] 100 ml IV ONETIME Water For Irrigation,Sterile [Sterile Water for Med 01/25/20 08:04 Active Irrigation] 1,000 ml IRR ASDIRECTED PRN miSOPROStoL [Cytotec] Med 01/25/20 08:04 Active 200 mcg PO ONETIME PRN Scalp Electrode [WOMSER] Per Unit Routine Oth 01/25/20 08:04 Ordered Peripheral IV Insertion Adult [OM.PC] Routine Oth 01/25/20 08:04 Ordered Resuscitation Status Routine Resus Stat 01/25/20 07:42 Ordered Medication Orders Butorphanol Tartrate (Stadol) 1 mg IVPUSH Q1H PRN PRN Reason: Pain Carboprost Tromethamine (Hemabate Ds) 250 mcg IM ASDIRECTED PRN PRN Reason: Post Hemorrhage Lactated Ringer's (Ringers, Lactated) 1,000 mls @ 150 mls/hr IV ASDIRECTED [facility]IL[facility] Last Admin: 01/25/20 08:32 Dose: 150 mls/hr Oxytocin/Sodium Chloride (Oxytocin 30 Unit/500 Ml-Ns) 30 unit in 500 mls @ 500 mls/hr IV TITRATE [facility] Tranexamic Acid 1,000 mg/ (Sodium Chloride) 110 mls @ 660 mls/hr IV ONETIME PRN PRN Reason: Bleeding Lidocaine HCl (Xylocaine 1%) 50 ml INJECT ONETIME PRN PRN Reason: Laceration repair Methylergonovine Maleate (Methergine) 0.2 mg IM ASDIRECTED PRN PRN Reason: Post Hemorrhage Misoprostol (Cytotec) 200 mcg PO ONETIME PRN PRN Reason: Post Hemorrhage Nalbuphine HCl (Nubain) 10 mg IVPUSH Q1H PRN PRN Reason: Pain (severe 7-10) Sodium Chloride (Saline Flush) 10 ml FLUSH ASDIRECTED PRN PRN Reason: Keep Vein Open Sodium Chloride (Saline Flush) 2.5 ml FLUSH ASDIRECTED PRN PRN Reason: Keep Vein Open Sodium Chloride (Normal Saline) 10 ml IV ASDIRECTED PRN PRN Reason: IV Use Sterile Water (Sterile Water For Irrigation) 1,000 ml IRR ASDIRECTED PRN PRN Reason: delivery Assessment/Plan Comment:: Admit A: at 38 weeks (HUGO: 02/08/20) presenting reporting regular contractions every 5 minutes; SVE 5 cm/80%/-2, soft, midposition; O+, rubella immune, GBS positive P: Anticipate ; epidural PRN; Dr. Norris updated; Call Lyn for Delivery
[2020-01-25] MEDS ORDERED: fentaNYL/Ropivacaine/Ns/PF 100 ML Bag ONE (11:29)
--- NOTE | 2020-01-25 11:57 | PCM.PREANE ---
Preanesthetic Assessment - Anesthesia/Transfusion/Family Hx Anesthesia History: Prior Anesthesia Without Reaction Family History of Anesthesia Reaction: No Transfusion History: No Prior Transfusion(s) Intubation History: Unknown - Review of Systems General: No Symptoms Pulmonary: No Symptoms Cardiovascular: No Symptoms Gastrointestinal: No Symptoms Neurological: No Symptoms Other: Reports: None ( presents in active labor. AROM about 1045. 5cm dilated requesting DREW. Had DREW with previous without complications) - Physical Assessment NPO Status Date: 01/25/20 NPO Status Time: 11:00 (crackers) Height: 5 ft 5 in Weight: 65.771 kg ASA Class: 2 Mental Status: Alert & Oriented x3 Airway Class: Mallampati = 1 Dentition: Reports: Normal Dentition Thyro-Mental Finger Breadths: 3 ROM/Head Extension: Full Lungs: Clear to Auscultation, Normal Respiratory Effort Cardiovascular: Regular Rate, Regular Rhythm - Lab Values: Laboratory Last Values WBC 11.08 K/uL (4.0-11.0) H 01/25/20 08:20 RBC 4.05 M/uL (4.30-5.90) L 01/25/20 08:20 Hgb 12.1 g/dL (12.0-16.0) 01/25/20 08:20 Hct 36.9 % (36.0-46.0) 01/25/20 08:20 MCV 91.1 fL (80.0-98.0) 01/25/20 08:20 MCH 29.9 pg (27.0-32.0) 01/25/20 08:20 MCHC 32.8 g/dL (31.0-37.0) 01/25/20 08:20 RDW Std Deviation 43.0 fl (28.0-62.0) 01/25/20 08:20 RDW Coeff of Amanda 13 % (11.0-15.0) 01/25/20 08:20 Plt Count 291 K/uL (150-400) 01/25/20 08:20 MPV 10.10 fL (7.40-12.00) 01/25/20 08:20 Nucleated RBC % 0.0 /100WBC 01/25/20 08:20 Nucleated RBCs # 0 K/uL 01/25/20 08:20 Blood Type O POSITIVE 05/19/20 08:20 Antibody Screen NEGATIVE 01/25/20 08:20 - Allergies Allergies/Adverse Reactions: Allergies Allergy/AdvReac Type Severity Reaction Status Date / Time No Known Allergies Allergy Verified 01/25/20 09:54 - Acknowledgements Anesthesia Type Planned: Epidural Pt an Appropriate Candidate for the Planned Anesthesia: Yes Alternatives and Risks of Anesthesia Discussed w Pt/Guardian: Yes Pt/Guardian Understands and Agrees with Anesthesia Plan: Yes PreAnesthesia Questionnaire - Past Health History Medical/Surgical History: Denies Medical/Surgical History HEENT History: Reports: Sinusitis Cardiovascular History: Reports: None Respiratory History: Reports: None Gastrointestinal History: Reports: None Genitourinary History: Reports: Renal Calculus Other Genitourinary History: hx kidney stone CORRUGATOR History: Reports: Other OB/BYN History: vaginal bleeding and abdominal pain/ 1 Musculoskeletal History: Reports: Fracture Other Musculoskeletal History: hx surgery for fx rt arm Neurological History: Reports: None Psychiatric History: Reports: None Endocrine/Metabolic History: Reports: None Hematologic History: Reports: None Immunologic History: Reports: None Oncologic (Cancer) History: Reports: None Dermatologic History: Reports: None - Infectious Disease History Infectious Disease History: Reports: Chicken Pox - Past Surgical History Head Surgeries/Procedures: Reports: None HEENT Surgical History: Reports: Other (See Below) Female Surgical History: Reports: None Neurological Surgical History: Reports: Other (See Below) Musculoskeletal Surgical History: Reports: Other (See Below) Other Musculoskeletal Surgeries/Procedures:: surgical tx for fx rt arm, ganglion cyst removed from left 3rd finger - SUBSTANCE USE Smoking Status *Q: Never Smoker Second Hand Smoke Exposure: No Recreational Drug Use History: No - HOME MEDS Home Medications: Home Meds Pnv No.103/Folic/Om3s/Fish Oil [ Gummies] 1 tab PO DAILY 11/21/16 [ History] Oseltamivir [Tamiflu] 75 mg PO BID 5 Days #10 cap 09/28/19 [Rx] - CURRENT (IN HOUSE) MEDS Current Meds: Current Medications Butorphanol Tartrate (Stadol) 1 mg IVPUSH Q1H PRN PRN Reason: Pain Carboprost Tromethamine (Hemabate Ds) 250 mcg IM ASDIRECTED PRN PRN Reason: Post Hemorrhage Lactated Ringer's (Ringers, Lactated) 1,000 mls @ 150 mls/hr IV ASDIRECTED [facility] Last Infusion: 01/25/20 11:19 Dose: 999 mls/hr Oxytocin/Sodium Chloride (Oxytocin 30 Unit/500 Ml-Ns) 30 unit in 500 mls @ 500 mls/hr IV TITRATE [facility] Tranexamic Acid 1,000 mg/ (Sodium Chloride) 110 mls @ 660 mls/hr IV ONETIME PRN PRN Reason: Bleeding Ampicillin Sodium 1 gm/ Sodium (Chloride) 50 mls @ 100 mls/hr IV Q4H [facility] Lidocaine HCl (Xylocaine 1%) 50 ml INJECT ONETIME PRN PRN Reason: Laceration repair Methylergonovine Maleate (Methergine) 0.2 mg IM ASDIRECTED PRN PRN Reason: Post Hemorrhage Misoprostol (Cytotec) 200 mcg PO ONETIME PRN PRN Reason: Post Hemorrhage Nalbuphine HCl (Nubain) 10 mg IVPUSH Q1H PRN PRN Reason: Pain (severe 7-10) Sodium Chloride (Saline Flush) 10 ml FLUSH ASDIRECTED PRN PRN Reason: Keep Vein Open Sodium Chloride (Saline Flush) 2.5 ml FLUSH ASDIRECTED PRN PRN Reason: Keep Vein Open Sodium Chloride (Normal Saline) 10 ml IV ASDIRECTED PRN PRN Reason: IV Use Sterile Water (Sterile Water For Irrigation) 1,000 ml IRR ASDIRECTED PRN PRN Reason: delivery Discontinued Medications Ampicillin Sodium 2 gm/ Sodium (Chloride) 100 mls @ 200 mls/hr IV ONETIME ONE Stop: 01/25/20 08:35 Last Admin: 01/25/20 08:35 Dose: 200 mls/hr
[2020-01-25] MEDS ORDERED: Ampicillin 1 GM in Sodium Chloride 0.9% 50 ML IV SCH (12:30)
[2020-01-25] MEDS ORDERED: Oxytocin/0.9 % Sodium Chloride 30 UNIT/500 ML BAG ONE (12:45)
[2020-01-25] MEDS ORDERED: Lidocaine 1% 50 ML MDV ONE (14:16)
--- NOTE | 2020-01-25 14:52 | PCM.DEL ---
L & D Note - General Info Date of Service: 01/25/20 Mother's Due Date: 02/08/20 - Delivery Note Labor: Spontaneous Delivery Outcome: Livebirth Infant Delivery Method: Spontaneous Vaginal Delivery-Single Delivery Mode: Spontaneous Presentation: Vertex Nuchal Cord: None Anesthesia Type: Epidural Anesthetic: Lidocaine (Xylocaine) 1% Plain Local Anesthetic Volume: 1cc Amniotic Fluid Description: Clear Episiotomy Type: Midline Laceration: 3rd Degree Placenta: Intact, Spontaneous Cord: 3 Vessels Estimated Blood Loss: 100 Resuscitation Needed: No Score 1 min: 8 Score 5 min: 9 Second Stage Interventions: Reports: Pushing, Pulls Own Legs Back Delivery Comments (Free Text/Narrative):: of Female, Head delivered with MLE, Shoulders and body followed easily. with spont cry placed on mothers abd. RN at for support. Delayed cord clamping. Pitocin to IVF. Cord clamped and cut. Cord blood collected. Placenta delivered grossly intact. 3VC. Inspection noted 3rd degree lac extension. Repaired in amitotically correct manor, hemostasis obtained. EBL 100cc. APGARS 8 /9, Wt: 6lb 6oz. Mother and baby left in stable condition. - General Info Date of Service: 01/25/20 Admission Dx/Problem (Free Text): Patient Status Order with Admit Dx/Problem 01/25/20 07:42 Patient Status [ADT] Routine Admission Diagnosis/Problem Admission Diagnosis/Problem 01/25/20 08:49 at 38 weeks (HUGO: 02/08/20) presenting reporting regular contractions every 5 minutes; SVE 5 cm/80%/-2, soft, midposition; O+, rubella immune, GBS positive Functional Status: Reports: Pain Controlled - Review of Systems General: Reports: No Symptoms HEENT: Reports: No Symptoms Pulmonary: Reports: No Symptoms Cardiovascular: Reports: No Symptoms Gastrointestinal: Reports: No Symptoms Genitourinary: Reports: No Symptoms Musculoskeletal: Reports: No Symptoms Skin: Reports: No Symptoms Neurological: Reports: No Symptoms Psychiatric: Reports: No Symptoms - Patient Data Weight - Most Recent: 65.771 kg Lab Results Last 24 Hours: Laboratory Results - last 24 hr 01/25/20 01/25/20 Range/Units 08:20 08:20 WBC 11.08 H (4.0-11.0) K/uL RBC 4.05 L (4.30-5.90) M/uL Hgb 12.1 (12.0-16.0) g/dL Hct 36.9 (36.0-46.0) % MCV 91.1 (80.0-98.0) fL MCH 29.9 (27.0-32.0) pg MCHC 32.8 (31.0-37.0) g/dL RDW Std Deviation 43.0 (28.0-62.0) fl RDW Coeff of Amanda 13 (11.0-15.0) % Plt Count 291 (150-400) K/uL MPV 10.10 (7.40-12.00) fL Nucleated RBC % 0.0 /100WBC Nucleated RBCs # 0 K/uL Blood Type O POSITIVE Antibody Screen NEGATIVE Med Orders - Current: Current Medications Butorphanol Tartrate (Stadol) 1 mg IVPUSH Q1H PRN PRN Reason: Pain Carboprost Tromethamine (Hemabate Ds) 250 mcg IM ASDIRECTED PRN PRN Reason: Post Hemorrhage Lactated Ringer's (Ringers, Lactated) 1,000 mls @ 150 mls/hr IV ASDIRECTED [facility] Last Admin: 01/25/20 13:39 Dose: 150 mls/hr Oxytocin/Sodium Chloride (Oxytocin 30 Unit/500 Ml-Ns) 30 unit in 500 mls @ 500 mls/hr IV TITRATE [facility] Tranexamic Acid 1,000 mg/ (Sodium Chloride) 110 mls @ 660 mls/hr IV ONETIME PRN PRN Reason: Bleeding Ampicillin Sodium 1 gm/ Sodium (Chloride) 50 mls @ 100 mls/hr IV Q4H [facility] Last Admin: 01/25/20 12:12 Dose: 100 mls/hr Lidocaine HCl (Xylocaine 1%) 50 ml INJECT ONETIME PRN PRN Reason: Laceration repair Methylergonovine Maleate (Methergine) 0.2 mg IM ASDIRECTED PRN PRN Reason: Post Hemorrhage Misoprostol (Cytotec) 200 mcg PO ONETIME PRN PRN Reason: Post Hemorrhage Nalbuphine HCl (Nubain) 10 mg IVPUSH Q1H PRN PRN Reason: Pain (severe 7-10) Sodium Chloride (Saline Flush) 10 ml FLUSH ASDIRECTED PRN PRN Reason: Keep Vein Open Sodium Chloride (Saline Flush) 2.5 ml FLUSH ASDIRECTED PRN PRN Reason: Keep Vein Open Sodium Chloride (Normal Saline) 10 ml IV ASDIRECTED PRN PRN Reason: IV Use Sterile Water (Sterile Water For Irrigation) 1,000 ml IRR ASDIRECTED PRN PRN Reason: delivery Discontinued Medications Ampicillin Sodium 2 gm/ Sodium (Chloride) 100 mls @ 200 mls/hr IV ONETIME ONE Stop: 01/25/20 08:35 Last Admin: 01/25/20 08:35 Dose: 200 mls/hr Oxytocin/Sodium Chloride (Oxytocin 30 Unit/500 Ml-Ns) Confirm Administered Dose 30 unit in 500 mls @ as directed .ROUTE .STK-MED ONE Stop: 01/25/20 12:46 Lidocaine HCl (Xylocaine 1%) Confirm Administered Dose 50 ml .ROUTE .STK-MED ONE Stop: 01/25/20 14:17 - Exam General: Alert, Oriented, Cooperative, No Acute Distress Lungs: Normal Respiratory Effort GI/Abdominal Exam: Soft, Non-Tender (Female) Exam: Normal External Exam, Normal Bimanual Exam, Vaginal Bleeding, Vaginal Tears Extremities: Normal Inspection, Non-Tender, No Pedal Edema Skin: Warm, Dry, Intact Wound/Incisions: Healing Well Neurological: No New Focal Deficit, Normal Speech, Normal Tone Psy/Mental Status: Alert, Normal Affect, Normal Mood - Problem List & Annotations (1) Supervision of normal IUP (intrauterine ) in multigravida SNOMED Code(s): 076819413, 583322333, 490490986 Code(s): Z34.80 - ENCOUNTER FOR SUPRVSN OF NORMAL , UNSP TRIMESTER Status: Acute Priority: High Current Visit: Yes Qualifiers: Trimester: third trimester Qualified Code(s): Z34.83 - Encounter for supervision of other normal , third trimester (2) (normal spontaneous vaginal delivery) SNOMED Code(s): 78806341, 300175264 Code(s): O80 - ENCOUNTER FOR FULL-TERM UNCOMPLICATED DELIVERY Status: Acute Priority: High Current Visit: No - Problem List Review Problem List Initiated/Reviewed/Updated: Yes - Plan Plan:: Admit A: at 38 weeks (HUGO: 06/02/20) presenting reporting regular contractions every 5 minutes; SVE 5 cm/80%/-2, soft, midposition; O+, rubella immune, GBS positive P: Anticipate ; epidural PRN; Dr. Norris updated; Call Lyn for Delivery Delivery A: of viable female, APGARS 8/9, Wt: 6lb 6oz, EBL 100cc, MLE w/3rd deg extension, repaired. Stable P: Routine pp plan of care.
[2020-01-25] MEDS ORDERED: oxyCODONE 5 MG Tab PO PRN (14:56)
[2020-01-25] MEDS ORDERED: Acetaminophen 500 MG Tab PO PRN (14:56)
[2020-01-25] MEDS ORDERED: Docusate Sodium 100 MG Cap PO PRN (14:56)
[2020-01-25] MEDS ORDERED: Lanolin 100% Cream 7 GM Tube TOP PRN (14:56)
[2020-01-25] MEDS ORDERED: Ibuprofen 400 MG Tab PO PRN (14:56)
[2020-01-25] MEDS ORDERED: Bisacodyl 10 MG Supp RECTAL PRN (14:56)
[2020-01-25] MEDS: Witch Hazel Medicated Pads 40/Jar TOP PRN (22:10)
[2020-01-25] MEDS: Benzocaine/Menthol 20%-0.5% Spray 78 GM Cannister TOP PRN (22:10)
[2020-01-25] MEDS: Ibuprofen 800 MG Tab PO PRN (22:56)
[2020-01-26] MEDS: Acetaminophen 500 MG Tab PO PRN ×2 (06:39→16:12)
--- NOTE | 2020-01-26 07:17 | PCM48HPAN ---
Post Anesthesia Note - EVALUATION WITHIN 48HRS OF ANESTHETIC Vital Signs in Normal Range: Yes Patient Participated in Evaluation: Yes Respiratory Function Stable: Yes Airway Patent: Yes Cardiovascular Function Stable: Yes Hydration Status Stable: Yes Pain Control Satisfactory: Yes Nausea and Vomiting Control Satisfactory: Yes Mental Status Recovered: Yes Vital Signs: Last Vital Signs Temp 97.6 F 01/26/20 05:16 Pulse 85 01/26/20 05:16 Resp 16 01/26/20 05:16 BP 115/66 01/26/20 05:16 Pulse Ox 98 01/26/20 05:16
[2020-01-26] MEDS: Ibuprofen 800 MG Tab PO PRN ×2 (08:29→16:12)
--- NOTE | 2020-01-26 09:30 | PCM.DCSUM1 ---
Discharge Summary - Hospital Course Free Text/Narrative:: Shawanda is a 29 yo PPD1 S/P uncomplicated to term NBF. O pos, RI, GBS pos with adequate ampicillin prophylaxis prior to . Hemodynamically stable, afebrile. Patient is exclusively well, resting comfortably in bed with in arms. Patient reports she is eating, voiding , ambulating independently and without difficulty. Patient denies any problems or concerns at this time except mild-moderate intermittent uterine cramping relieved with Tylenol and Ibuprofen. Patient reports small rubra lochia with no clots. Patient verbalizes her readiness to be discharged home. Diagnosis: Stroke: No - Discharge Data Discharge Date: 01/26/20 Discharge Disposition: Home, Self-Care 01 Condition: Good - Referral to Home Health Primary Care Physician: PCP None - Discharge Diagnosis/Problem(s) (1) (normal spontaneous vaginal delivery) SNOMED Code(s): 76481089, [id number] ICD Code: O80 - ENCOUNTER FOR FULL-TERM UNCOMPLICATED DELIVERY Status: Acute Priority: High Current Visit: Yes (2) Mother currently breast-feeding SNOMED Code(s): 742909412 ICD Code: Z39.1 - ENCOUNTER FOR CARE AND EXAMINATION OF LACTATING MOTHER Status: Acute Priority: High Current Visit: Yes - Patient Instructions Diet: Regular Diet as Tolerated, Drink 8-10+ Glasses/Day Activity: As Tolerated, No Lifting Over 20 Pounds Driving: May Drive Today Showering/Bathing: May Shower Showering/Bathing, Other: May utilize sitz baths for perineum care. Notify Provider of: Fever, Increased Pain, Swelling and Redness, Drainage, Nausea and/or Vomiting - Discharge Plan *PRESCRIPTION DRUG MONITORING PROGRAM REVIEWED*: No *COPY OF PRESCRIPTION DRUG MONITORING REPORT IN PATIENT CHRISTOPHER: No Prescriptions/Med Rec: Ibuprofen [Motrin] 800 mg PO Q8H PRN #90 tablet PRN Reason: Pain Lanolin [Lansinoh HPA] 1 tube TOP ASDIRECTED PRN #1 tube PRN Reason: Sore Nipples Home Medications: Home Meds Ibuprofen [Motrin] 800 mg PO Q8H PRN #90 tablet 01/26/20 [Rx] Lanolin [Lansinoh HPA] 1 tube TOP ASDIRECTED PRN #1 tube 01/26/20 [Rx] Oxygen Therapy Mode: Room Air Referrals: [facility] [Outside] Lyn Beal CNM [Mid-] - 03/07/20 2:15 pm - Discharge Summary/Plan Comment DC Time >30 min.: Yes (January D/C home today.) - General Info Date of Service: 01/26/20 Admission Dx/Problem (Free Text: Patient Status Order with Admit Dx/Problem 01/25/20 07:42 Patient Status [ADT] Routine Admission Diagnosis/Problem Admission Diagnosis/Problem 01/25/20 08:49 at 38 weeks (HUGO: 02/08/20) presenting reporting regular contractions every 5 minutes; SVE 5 cm/80%/-2, soft, midposition; O+, rubella immune, GBS positive Functional Status: Reports: Pain Controlled, Tolerating Diet, Ambulating, Urinating - Review of Systems General: Reports: No Symptoms HEENT: Reports: No Symptoms Pulmonary: Reports: No Symptoms Cardiovascular: Reports: No Symptoms Gastrointestinal: Reports: No Symptoms Genitourinary: Reports: No Symptoms, Other (Small rubra lochia. Intermittent mild-moderate uterine cramping.) Musculoskeletal: Reports: No Symptoms Skin: Reports: No Symptoms Neurological: Reports: No Symptoms Psychiatric: Reports: No Symptoms - Patient Data Vitals - Most Recent: Last Vital Signs Temp 97.6 F 01/26/20 05:16 Pulse 85 01/26/20 05:16 Resp 16 01/26/20 05:16 BP 115/66 01/26/20 05:16 Pulse Ox 98 01/26/20 05:16 Weight - Most Recent: 145 lb Lab Results - Last 24 hrs: Laboratory Results - last 24 hr 01/25/20 Range/Units 08:20 Blood Type O POSITIVE Antibody Screen NEGATIVE Med Orders - Current: Current Medications Acetaminophen (Tylenol Extra Strength) 500 mg PO Q4H PRN PRN Reason: Pain Acetaminophen (Tylenol Extra Strength) 1,000 mg PO Q4H PRN PRN Reason: Pain Last Admin: 01/26/20 06:39 Dose: 1,000 mg Benzocaine/Menthol (Dermoplast Pain Relief 20%-0.5% Ailey) 78 gm TOP ASDIRECTED PRN PRN Reason: Perineal Comfort Measure Last Admin: 01/25/20 22:10 Dose: 1 canister Bisacodyl (Dulcolax) 10 mg RECTAL ONETIME PRN PRN Reason: Constipation Docusate Sodium (Colace) 100 mg PO BID PRN PRN Reason: Constipation Last Admin: 01/26/20 06:40 Dose: 100 mg Emollient Ointment (Lansinoh Hpa) 0 gm TOP ASDIRECTED PRN PRN Reason: Sore Nipples Last Admin: 01/25/20 22:11 Dose: 40 gram Ibuprofen (Motrin) 400 mg PO Q4H PRN PRN Reason: Pain Ibuprofen (Motrin) 800 mg PO Q6H PRN PRN Reason: Pain Last Admin: 01/26/20 08:29 Dose: 800 mg Oxycodone HCl (Oxycodone) 5 mg PO Q2H PRN PRN Reason: Pain Witch Anya (Tucks) 1 pad TOP ASDIRECTED PRN PRN Reason: comfort care Last Admin: 01/25/20 22:10 Dose: 1 tub Discontinued Medications Butorphanol Tartrate (Stadol) 1 mg IVPUSH Q1H PRN PRN Reason: Pain Carboprost Tromethamine (Hemabate Ds) 250 mcg IM ASDIRECTED PRN PRN Reason: Post Hemorrhage Lactated Ringer's (Ringers, Lactated) 1,000 mls @ 150 mls/hr IV ASDIRECTED [facility] Last Admin: 01/25/20 13:39 Dose: 150 mls/hr Oxytocin/Sodium Chloride (Oxytocin 30 Unit/500 Ml-Ns) 30 unit in 500 mls @ 500 mls/hr IV TITRATE [facility] Tranexamic Acid 1,000 mg/ (Sodium Chloride) 110 mls @ 660 mls/hr IV ONETIME PRN PRN Reason: Bleeding Ampicillin Sodium 2 gm/ Sodium (Chloride) 100 mls @ 200 mls/hr IV ONETIME ONE Stop: 01/25/20 08:35 Last Admin: 01/25/20 08:35 Dose: 200 mls/hr Ampicillin Sodium 1 gm/ Sodium (Chloride) 50 mls @ 100 mls/hr IV Q4H [facility] Last Admin: 01/25/20 12:12 Dose: 100 mls/hr Oxytocin/Sodium Chloride (Oxytocin 30 Unit/500 Ml-Ns) Confirm Administered Dose 30 unit in 500 mls @ as directed .ROUTE .STK-MED ONE Stop: 01/25/20 12:46 Lidocaine HCl (Xylocaine 1%) 50 ml INJECT ONETIME PRN PRN Reason: Laceration repair Lidocaine HCl (Xylocaine 1%) Confirm Administered Dose 50 ml .ROUTE .[facility] ONE Stop: 01/25/20 14:17 Methylergonovine Maleate (Methergine) 0.2 mg IM ASDIRECTED PRN PRN Reason: Post Hemorrhage Misoprostol (Cytotec) 200 mcg PO ONETIME PRN PRN Reason: Post Hemorrhage Nalbuphine HCl (Nubain) 10 mg IVPUSH Q1H PRN PRN Reason: Pain (severe 7-10) Sodium Chloride (Saline Flush) 10 ml FLUSH ASDIRECTED PRN PRN Reason: Keep Vein Open Sodium Chloride (Saline Flush) 2.5 ml FLUSH ASDIRECTED PRN PRN Reason: Keep Vein Open Sodium Chloride (Normal Saline) 10 ml IV ASDIRECTED PRN PRN Reason: IV Use Sterile Water (Sterile Water For Irrigation) 1,000 ml IRR ASDIRECTED PRN PRN Reason: delivery - Exam General: Reports: Alert, Oriented HEENT: Reports: Pupils Equal, Pupils Reactive, Mucous Membr. Moist/[place]ck: Reports: Supple Lungs: Reports: Clear to Auscultation, Normal Respiratory Effort Cardiovascular: Reports: Regular Rate, Regular Rhythm GI/Abdominal Exam: Normal Bowel Sounds, Soft, Non-Tender, No Organomegaly, No Distention (Female) Exam: Normal External Exam, Normal Speculum Exam, Vaginal Bleeding, Other (Small rubra lochia, no clots. Uterus firm U-2.) Rectal (Female) Exam: Deferred Back Exam: Reports: Normal Inspection, Full Range of Motion Extremities: Normal Inspection, Normal Range of Motion, Non-Tender, No Pedal Edema, Normal Capillary Refill Skin: Reports: Warm, Dry, Intact Wound/Incisions: Reports: Healing Well Neurological: Reports: No New Focal Deficit Psy/Mental Status: Reports: Alert, Normal Affect, Normal Mood
[2020-01-26] MEDS: Witch Hazel Medicated Pads 40/Jar TOP PRN (17:46)
[2020-01-26] MEDS: Benzocaine/Menthol 20%-0.5% Spray 78 GM Cannister TOP PRN (17:47)
[2020-01-26 19:48] VITALS: BP 107/56; PULSE 70
== END 2020-01-26 18:30 | disposition home or self-care (01) | DRG 768 ==
LOC: MW.OBCHECK 07:36 → MW.OB 07:37 → MW.OBCHECK 08:00 → MW.OB 08:00 → OBSVTOIN 14:12 → MW.OB 17:00
PROVIDERS: ADMIT Obstetrics & Gynecology; ATTEND Obstetrics & Gynecology
PROC: 10E0XZZ Delivery of Products of Conception, External Approach (ICD-10-PCS; principal; 2020-01-25)
PROC: 0DQR0ZZ Repair Anal Sphincter, Open Approach (ICD-10-PCS; 2020-01-25)
PROC: 10907ZC Drainage of Amniotic Fluid, Therapeutic from Products of Conception, Via Natural or Artificial Opening (ICD-10-PCS; 2020-01-25)
PROC: 0W8NXZZ Division of Female Perineum, External Approach (ICD-10-PCS; 2020-01-25)
PROC: 3E0R3BZ Introduction of Anesthetic Agent into Spinal Canal, Percutaneous Approach (ICD-10-PCS; 2020-01-25)
DX: O70.20 Third degree perineal laceration during delivery, unspecified (principal); Z37.0 Single live birth; Z3A.38 38 weeks gestation of pregnancy
CPT/HCPCS: 01967; 51702; 59025; 59409; 85027; 86592; 86593; 86850; 86900; 86901; A9270-GY; J0290; J2001; J2590; J7050; J7120